=== PATIENT | male | born 1975 | race Caucasian/White ===

== ENCOUNTER 2021-03-31 03:17 | Inpatient (IN) | payer MEDICAID, OTHER ==
[~2021-03-31] VITALS: Ht 167.6 cm; Wt 87.1 kg
[2021-03-31] VITALS (55 sets, daily range): BP systolic 81–123; BP diastolic 39–79
[2021-03-31] MEDS ORDERED: NOREPINEPHRINE 8MG/250ML PMX 250 ML IV ONE (03:30)
[2021-03-31 03:43] LABS: HEMATOCRIT. 45.2 % (42.0-52.0); HEMOGLOBIN. 14.7 g/dL (14.0-18.0); MEAN CORPUSCULAR HEMOGLOBIN 29.2 pg (28.0-32.0); MEAN CORPUSCULAR VOLUME 89.7 fL (80.0-94.0); PLATELET 246 x1000/uL (130-400); RED BLOOD CELL COUNT 5.04 mill/uL (4.7-6.1); RED CELL DISTRIBUTION WIDTH 13.5 % (11.6-14.6)
[2021-03-31 03:45] LABS: CHLORIDE 100 mEq/L (98-107)
[2021-03-31] MEDS ORDERED: MIDAZOLAM HCL 100 MG in DEXT 5% WATER 80 ML IV ONE (03:45)
[2021-03-31] MEDS ORDERED: SODIUM CHLORIDE 0.9% 1,000 ML IV ONE ×2 (03:45)
[2021-03-31 03:50] LABS: INR 1.3; PROTHROMBIN TIME 13.3 sec (9.6-11.0)
[2021-03-31 04:12] LABS: BG BASE EXCESS -10.3 mmol/L (-2.0-2.0); BG CARBOXYHEMOGLOBIN 0.3 % (0.5-1.5); BG DEOXYHEMOGLOBIN 0.5 % (0.0-5.0); BG FRACTION INSPIRED OXYGEN 100; BG HCO3 ACT 15.9 mmol/L (22.0-26.0); BG METHEMOGLOBIN 0.3 % (0.0-1.5); BG OXYGEN SATURATION 99.5 % (92.0-98.5); BG OXYHEMOGLOBIN 98.9 % (94.0-97.0); BG PCO2 36.4 mmHg (35.0-45.0); BG PH 7.258 (7.350-7.450); BG PO2 438.1 mmHg (75.0-100.0); BG SAMPLE SITE RIGHT RADIAL; BG VENT MODE VENT - AC
[2021-03-31 04:33] LABS: CLARITY URINE CLOUDY (CLEAR); COLOR URINE YELLOW (YELLOW); KETONES URINE NEGATIVE (NEGATIVE); LEUKOCYTE ESTERASE URINE NEGATIVE (NEGATIVE); NITRITE URINE NEGATIVE (NEGATIVE); OCCULT BLOOD URINE 1+ (NEGATIVE); PH URINE 5.5 (4.5-8.0); PROTEIN URINE 3+ (NEGATIVE); UROBILINOGEN URINE 0.2 E.U./dL (0.2-1.0)
[2021-03-31 04:46] LABS: METHADONE URINE SCREEN NEGATIVE (NEGATIVE); OPIATES URINE SCREEN NEGATIVE (NEGATIVE)
[2021-03-31 04:47] LABS: *AMPHETAMINES SCREEN URINE NEGATIVE (NEGATIVE); *BARBITURATES SCREEN URINE NEGATIVE (NEGATIVE); *BENZODIAZEPINES SCREEN URINE NEGATIVE (NEGATIVE); *COCAINE SCREEN URINE NEGATIVE (NEGATIVE); CANNABINOID URINE SCREEN NEGATIVE (NEGATIVE); PHENCYCLIDINE URINE SCREEN NEGATIVE (NEGATIVE)
[2021-03-31 06:08] LABS: PLATELET ESTIMATE NORMAL
[2021-03-31] MEDS ORDERED: EPINEPHRINE 0.1MG/ML (1:10,000) 10ML SYR ONE (08:10)
[2021-03-31] MEDS ORDERED: SODIUM BICARBONATE 8.4% 1 MEQ/ML 50ML SYR IV ONE (08:10)
[2021-03-31] MEDS ORDERED: CALCIUM CHLORIDE 1GM/10ML SYR IV ONE (08:10)
[2021-03-31] MEDS ORDERED: AMIODARONE HCL 50MG/ML 3ML VIAL IV ONE (08:10)
[2021-03-31] MEDS ORDERED: DEXTROSE 50% WATER 50ML SYRINGE IV PRN (09:30)
[2021-03-31] MEDS ORDERED: ACETAMINOPHEN 325MG TABLET PO PRN (09:30)
[2021-03-31] MEDS ORDERED: ONDANSETRON HCL 4MG/2ML INJ IV PRN (09:30)
[2021-03-31] MEDS ORDERED: SODIUM BICARBONATE 8.4% 1 MEQ/ML 50ML SYR IV NR (09:45)
[2021-03-31] MEDS ORDERED: LEVETIRACETAM 1,000 MG in SODIUM CHLORIDE 0.9% 100 ML IV NR (09:45)
[2021-03-31] MEDS: SODIUM CHLORIDE 0.45% 1,000 ML IV SCH (09:54)
[2021-03-31] MEDS: MIDAZOLAM HCL 100 MG in DEXT 5% WATER 80 ML IV PRN ×2 (10:14→17:10)
[2021-03-31] MEDS ORDERED: POTASSIUM CHLORIDE INJ 40 MEQ in DEXT 5% WATER 250 ML IV NR (10:30)
[2021-03-31 10:36] LABS: CREATINE KINASE 234 IU/L (39-308)
[2021-03-31] MEDS ORDERED: BLOOD SUGAR DIAGNOSTIC STRIP TEST SCH (11:30)
[2021-03-31] MEDS ORDERED: INSULIN LISPRO 100 UNITS/ML SUBCUT SCH (12:00)
[2021-03-31] MEDS ORDERED: NOREPINEPHRINE 8 MG in DEXT 5% WATER 242 ML IV PRN (12:00)
[2021-03-31] MEDS: PIPERACILLIN/TAZOBACTAM 3.375 G in DEXT 5% WATER 100 ML IV SCH ×3 (12:01→22:04)
[2021-03-31] MEDS: IPRATROPIUM/ALBUTEROL 0.5-3(2.5)MG/3ML NEB HHN SCH ×2 (14:23→20:39)
[2021-03-31] MEDS: LEVETIRACETAM 1000MG PREMIX 100 ML IV SCH (17:01)
[2021-03-31] MEDS ORDERED: THIAMINE HCL 100 MG in SODIUM CHLORIDE 0.9% 49 ML IV NR (18:00)
[2021-03-31] MEDS ORDERED: LEVETIRACETAM 500 MG in SODIUM CHLORIDE 0.9% 100 ML IV SCH (21:00)
[2021-03-31] MEDS ORDERED: LEVETIRACETAM 500MG PREMIX 100 ML IV SCH ×2 (21:00)
[2021-04-01] VITALS (61 sets, daily range): BP systolic 114–153; BP diastolic 71–106
[2021-04-01] MEDS: LEVETIRACETAM 1000MG PREMIX 100 ML IV SCH ×3 (01:08→20:54)
[2021-04-01] MEDS: IPRATROPIUM/ALBUTEROL 0.5-3(2.5)MG/3ML NEB HHN SCH ×3 (01:44→20:25)
[2021-04-01] MEDS: MIDAZOLAM HCL 100 MG in DEXT 5% WATER 80 ML IV PRN (02:30)
[2021-04-01] MEDS: PIPERACILLIN/TAZOBACTAM 3.375 G in DEXT 5% WATER 100 ML IV SCH ×3 (04:42→16:58)
[2021-04-01] MEDS: ACETAMINOPHEN 650MG/20.3ML UDC NG PRN ×2 (04:43→20:56)
[2021-04-01] MEDS: SODIUM CHLORIDE 0.45% 1,000 ML IV SCH ×3 (04:44→18:35)
[2021-04-01 05:47] LABS: BASOPHILS % 0.4 % (0.0-2.0); EOSINOPHILS % 0.1 % (0.0-5.0); HEMATOCRIT. 39.2 % (42.0-52.0); HEMOGLOBIN. 13.2 g/dL (14.0-18.0); LYMPHOCYTES % 17.2 % (20.0-50.0); MEAN CORPUSCULAR HEMOGLOBIN 28.9 pg (28.0-32.0); MEAN CORPUSCULAR VOLUME 85.8 fL (80.0-94.0); MEAN PLATELET VOLUME 8.9 fl (7.4-10.4); MONOCYTES % 11.3 % (2.0-8.0); PLATELET 151 x1000/uL (130-400); RED BLOOD CELL COUNT 4.57 mill/uL (4.7-6.1); RED CELL DISTRIBUTION WIDTH 13.4 % (11.6-14.6)
[2021-04-01 05:49] LABS: CHLORIDE 107 mEq/L (98-107)
[2021-04-01 08:03] LABS: BG CARBOXYHEMOGLOBIN 0.1 % (0.5-1.5); BG DEOXYHEMOGLOBIN 4.9 % (0.0-5.0); BG FRACTION INSPIRED OXYGEN 60; BG HCO3 ACT 25.9 mmol/L (22.0-26.0); BG METHEMOGLOBIN 0.1 % (0.0-1.5); BG OXYGEN SATURATION 95.1 % (92.0-98.5); BG OXYHEMOGLOBIN 94.9 % (94.0-97.0); BG PCO2 46.7 mmHg (35.0-45.0); BG PH 7.362 (7.350-7.450); BG PO2 76.8 mmHg (75.0-100.0); BG SAMPLE SITE RIGHT RADIAL; BG TOTAL HEMOGLOBIN 14.7 g/dL (12.0-18.0); BG TOTAL RESPIRATORY RATE 24 b/min; BG VENT MODE VENT - AC
[2021-04-01] MEDS ORDERED: PANTOPRAZOLE SODIUM 40 MG/VIAL IV SCH (09:00)
[2021-04-01] MEDS: PANTOPRAZOLE SODIUM 40 MG/VIAL IV SCH (16:57)
[2021-04-01] MEDS: SUCRALFATE 1 G/10 ML UDC PO SCH ×2 (16:58→20:56)
[2021-04-01] MEDS ORDERED: FENTANYL CITRATE 2,500 MCG in SODIUM CHLORIDE 0.9% 200 ML IV PRN (18:15)
[2021-04-01] MEDS ORDERED: MIDAZOLAM HCL 100 MG in SODIUM CHLORIDE 0.9% 100 ML IV PRN (18:15)
[2021-04-01] MEDS ORDERED: MIDAZOLAM 100MG/100ML PMX 100 ML IV PRN (18:15)
[2021-04-01] MEDS ORDERED: FENTANYL CITRATE/PF 1,000 MCG in SODIUM CHLORIDE 0.9% 80 ML IV PRN (18:15)
[2021-04-02] VITALS (85 sets, daily range): BP systolic 123–179; BP diastolic 84–119
[2021-04-02] MEDS: PIPERACILLIN/TAZOBACTAM 3.375 G in DEXT 5% WATER 100 ML IV SCH ×5 (00:22→22:25)
[2021-04-02] MEDS: IPRATROPIUM/ALBUTEROL 0.5-3(2.5)MG/3ML NEB HHN SCH ×4 (01:45→20:10)
[2021-04-02] MEDS: SUCRALFATE 1 G/10 ML UDC PO SCH ×4 (04:52→22:15)
[2021-04-02] MEDS: ACETAMINOPHEN 650MG/20.3ML UDC NG PRN ×4 (05:01→23:49)
[2021-04-02 05:58] LABS: CHLORIDE 106 mEq/L (98-107)
[2021-04-02 06:05] LABS: BASOPHILS % 0.2 % (0.0-2.0); EOSINOPHILS % 0.6 % (0.0-5.0); HEMATOCRIT. 37.2 % (42.0-52.0); HEMOGLOBIN. 13.1 g/dL (14.0-18.0); LYMPHOCYTES % 12.6 % (20.0-50.0); MEAN CORPUSCULAR HEMOGLOBIN 29.7 pg (28.0-32.0); MEAN CORPUSCULAR VOLUME 84.7 fL (80.0-94.0); MEAN PLATELET VOLUME 9.2 fl (7.4-10.4); MONOCYTES % 11.4 % (2.0-8.0); NEUTROPHILS % 75.2 % (40.0-76.0); PLATELET 136 x1000/uL (130-400); RED CELL DISTRIBUTION WIDTH 13.5 % (11.6-14.6)
[2021-04-02 06:29] LABS: HEPATITIS B SURFACE ANTIGEN NEGATIVE
[2021-04-02 06:58] LABS: HEPATITIS A AB IGM NEGATIVE (NEGATIVE)
[2021-04-02 08:24] LABS: BG CARBOXYHEMOGLOBIN 0.2 % (0.5-1.5); BG DEOXYHEMOGLOBIN 1.5 % (0.0-5.0); BG FRACTION INSPIRED OXYGEN 55; BG HCO3 ACT 24.3 mmol/L (22.0-26.0); BG METHEMOGLOBIN 0.3 % (0.0-1.5); BG OXYGEN SATURATION 98.5 % (92.0-98.5); BG PCO2 34.5 mmHg (35.0-45.0); BG PH 7.465 (7.350-7.450); BG PO2 125.6 mmHg (75.0-100.0); BG SAMPLE SITE RIGHT RADIAL; BG TOTAL HEMOGLOBIN 13.7 g/dL (12.0-18.0); BG VENT MODE VENT - AC
[2021-04-02] MEDS: LEVETIRACETAM 1000MG PREMIX 100 ML IV SCH ×2 (08:34→20:22)
[2021-04-02] MEDS: PANTOPRAZOLE SODIUM 40 MG/VIAL IV SCH ×2 (08:34→16:26)
[2021-04-02] MEDS: SODIUM CHLORIDE 0.45% 1,000 ML IV SCH (14:26)
[2021-04-02] MEDS: LORAZEPAM 2MG/ML CPJ IV PRN (16:42)
[2021-04-02] MEDS ORDERED: LORAZEPAM 2MG/ML CPJ IV NR (20:30)
[2021-04-02] MEDS: HYDRALAZINE 20MG/ML VIAL IV PRN (22:48)
[2021-04-02] MEDS: CLONIDINE 0.1MG TABLET PO PRN (23:44)
[2021-04-02] MEDS: ENALAPRIL 2.5MG/2ML VIAL 2ML IV PRN (23:52)
[2021-04-03] VITALS (87 sets, daily range): BP systolic 131–184; BP diastolic 83–117
[2021-04-03] MEDS: IPRATROPIUM/ALBUTEROL 0.5-3(2.5)MG/3ML NEB HHN SCH ×3 (01:44→20:24)
[2021-04-03] MEDS: SUCRALFATE 1 G/10 ML UDC PO SCH ×4 (04:08→22:56)
[2021-04-03] MEDS: SODIUM CHLORIDE 0.45% 1,000 ML IV SCH ×2 (04:08→12:59)
[2021-04-03] MEDS: LORAZEPAM 2MG/ML CPJ IV PRN (04:49)
[2021-04-03] MEDS: CLONIDINE 0.1MG TABLET PO PRN ×2 (04:49→17:08)
[2021-04-03] MEDS: PROPOFOL 10MG/ML 100ML 100 ML IV PRN ×5 (05:14→23:09)
[2021-04-03] MEDS: PIPERACILLIN/TAZOBACTAM 3.375 G in DEXT 5% WATER 100 ML IV SCH ×4 (05:15→22:57)
[2021-04-03 05:43] LABS: HEMATOCRIT 43.5 % (42.0-52.0); MEAN CORPUSCULAR HEMOGLOBIN 29.1 pg (28.0-32.0); MEAN CORPUSCULAR VOLUME 84.3 fL (80.0-94.0); PLATELET 146 x1000/uL (130-400); RED BLOOD CELL COUNT 5.16 mill/uL (4.7-6.1); RED CELL DISTRIBUTION WIDTH 13.6 % (11.6-14.6)
[2021-04-03 05:49] LABS: CHLORIDE 103 mEq/L (98-107)
[2021-04-03] MEDS: ACETAMINOPHEN 650MG/20.3ML UDC NG PRN ×2 (06:12→18:19)
[2021-04-03 07:50] LABS: BG DEOXYHEMOGLOBIN 0.8 % (0.0-5.0); BG FRACTION INSPIRED OXYGEN 100; BG HCO3 ACT 20.8 mmol/L (22.0-26.0); BG METHEMOGLOBIN 0.3 % (0.0-1.5); BG OXYGEN SATURATION 99.2 % (92.0-98.5); BG OXYHEMOGLOBIN 98.9 % (94.0-97.0); BG PCO2 27.6 mmHg (35.0-45.0); BG PH 7.495 (7.350-7.450); BG PO2 250.4 mmHg (75.0-100.0); BG SAMPLE SITE RIGHT RADIAL; BG TOTAL HEMOGLOBIN 14.9 g/dL (12.0-18.0); BG TOTAL RESPIRATORY RATE 24 b/min; BG VENT MODE VENT - AC
[2021-04-03] MEDS: LEVETIRACETAM 1000MG PREMIX 100 ML IV SCH ×2 (09:58→21:14)
[2021-04-03] MEDS: PANTOPRAZOLE SODIUM 40 MG/VIAL IV SCH ×2 (09:58→17:08)
[2021-04-03] MEDS: HYDRALAZINE 20MG/ML VIAL IV PRN (12:31)
[2021-04-04] VITALS (99 sets, daily range): BP systolic 124–164; BP diastolic 83–119
[2021-04-04] MEDS: IPRATROPIUM/ALBUTEROL 0.5-3(2.5)MG/3ML NEB HHN SCH ×4 (01:52→21:16)
[2021-04-04] MEDS: SUCRALFATE 1 G/10 ML UDC PO SCH ×4 (03:42→23:37)
[2021-04-04 04:47] LABS: HEMATOCRIT. 40.9 % (42.0-52.0); HEMOGLOBIN. 13.9 g/dL (14.0-18.0); MEAN CORPUSCULAR HEMOGLOBIN 29.2 pg (28.0-32.0); MEAN CORPUSCULAR VOLUME 85.6 fL (80.0-94.0); MEAN PLATELET VOLUME 8.8 fl (7.4-10.4); PLATELET 144 x1000/uL (130-400); RED BLOOD CELL COUNT 4.77 mill/uL (4.7-6.1); RED CELL DISTRIBUTION WIDTH 13.4 % (11.6-14.6)
[2021-04-04] MEDS: PIPERACILLIN/TAZOBACTAM 3.375 G in DEXT 5% WATER 100 ML IV SCH ×4 (04:57→23:37)
[2021-04-04 04:59] LABS: CHLORIDE 102 mEq/L (98-107)
[2021-04-04] MEDS: SODIUM CHLORIDE 0.45% 1,000 ML IV SCH ×2 (05:59→21:46)
[2021-04-04 08:20] LABS: BG BASE EXCESS 0.5 mmol/L (-2.0-2.0); BG CARBOXYHEMOGLOBIN 0.3 % (0.5-1.5); BG DEOXYHEMOGLOBIN 4.2 % (0.0-5.0); BG FRACTION INSPIRED OXYGEN 50; BG HCO3 ACT 22.1 mmol/L (22.0-26.0); BG METHEMOGLOBIN 0.1 % (0.0-1.5); BG OXYGEN SATURATION 95.8 % (92.0-98.5); BG OXYHEMOGLOBIN 95.4 % (94.0-97.0); BG PCO2 27.4 mmHg (35.0-45.0); BG PH 7.524 (7.350-7.450); BG PO2 74.1 mmHg (75.0-100.0); BG SAMPLE SITE RIGHT RADIAL; BG TOTAL HEMOGLOBIN 13.8 g/dL (12.0-18.0); BG VENT MODE VENT - AC
[2021-04-04] MEDS: LEVETIRACETAM 1000MG PREMIX 100 ML IV SCH ×2 (08:49→21:45)
[2021-04-04] MEDS: PANTOPRAZOLE SODIUM 40 MG/VIAL IV SCH ×2 (08:49→16:53)
[2021-04-04] MEDS ORDERED: PROPOFOL 10MG/ML 100ML 100 ML IV PRN (09:00)
[2021-04-04] MEDS: PROPOFOL 10MG/ML 100ML 100 ML IV PRN ×2 (10:06→16:52)
[2021-04-04 10:50] LABS: PLATELET ESTIMATE NORMAL
[2021-04-05] VITALS (102 sets, daily range): BP systolic 107–199; BP diastolic 58–139
[2021-04-05] MEDS: IPRATROPIUM/ALBUTEROL 0.5-3(2.5)MG/3ML NEB HHN SCH ×4 (00:27→20:43)
[2021-04-05] MEDS: ENALAPRIL 2.5MG/2ML VIAL 2ML IV PRN (04:53)
[2021-04-05] MEDS: SUCRALFATE 1 G/10 ML UDC PO SCH ×4 (04:53→23:10)
[2021-04-05 06:03] LABS: HEMATOCRIT. 39.5 % (42.0-52.0); HEMOGLOBIN. 13.8 g/dL (14.0-18.0); MEAN CORPUSCULAR HEMOGLOBIN 29.4 pg (28.0-32.0); MEAN CORPUSCULAR VOLUME 84.5 fL (80.0-94.0); MEAN PLATELET VOLUME 9.1 fl (7.4-10.4); PLATELET 168 x1000/uL (130-400); RED BLOOD CELL COUNT 4.68 mill/uL (4.7-6.1); RED CELL DISTRIBUTION WIDTH 13.3 % (11.6-14.6)
[2021-04-05] MEDS: PIPERACILLIN/TAZOBACTAM 3.375 G in DEXT 5% WATER 100 ML IV SCH ×2 (06:03→09:46)
[2021-04-05 06:06] LABS: CHLORIDE 99 mEq/L (98-107)
[2021-04-05 07:19] LABS: BG CARBOXYHEMOGLOBIN 0.3 % (0.5-1.5); BG DEOXYHEMOGLOBIN 1.7 % (0.0-5.0); BG HCO3 ACT 22.8 mmol/L (22.0-26.0); BG METHEMOGLOBIN 0.1 % (0.0-1.5); BG OXYGEN SATURATION 98.3 % (92.0-98.5); BG OXYHEMOGLOBIN 97.9 % (94.0-97.0); BG PCO2 32.1 mmHg (35.0-45.0); BG SAMPLE SITE RIGHT RADIAL; BG TOTAL HEMOGLOBIN 14.3 g/dL (12.0-18.0); BG VENT MODE VENT - AC
[2021-04-05] MEDS: ACETAMINOPHEN 650MG/20.3ML UDC NG PRN ×2 (08:20→20:26)
[2021-04-05] MEDS: LEVETIRACETAM 500MG/5ML CUP GT SCH ×2 (08:21→22:04)
[2021-04-05] MEDS: PANTOPRAZOLE SODIUM 40 MG/VIAL IV SCH ×2 (08:21→17:44)
[2021-04-05] MEDS: SODIUM CHLORIDE 0.45% 1,000 ML IV SCH (09:46)
[2021-04-05 13:36] LABS: PLATELET ESTIMATE NORMAL
[2021-04-05] MEDS: PROPOFOL 10MG/ML 100ML 100 ML IV PRN ×2 (14:03→20:28)
[2021-04-05] MEDS: HYDRALAZINE 20MG/ML VIAL IV PRN (17:44)
[2021-04-05] MEDS: LORAZEPAM 2MG/ML CPJ IV PRN (18:20)
[2021-04-06] VITALS (97 sets, daily range): BP systolic 97–160; BP diastolic 52–112
[2021-04-06] MEDS: PROPOFOL 10MG/ML 100ML 100 ML IV PRN ×6 (00:21→22:01)
[2021-04-06] MEDS: IPRATROPIUM/ALBUTEROL 0.5-3(2.5)MG/3ML NEB HHN SCH ×4 (01:58→20:22)
[2021-04-06] MEDS: ACETAMINOPHEN 650MG/20.3ML UDC NG PRN (04:28)
[2021-04-06] MEDS: SUCRALFATE 1 G/10 ML UDC PO SCH ×4 (05:11→22:24)
[2021-04-06 06:09] LABS: BASOPHILS % 0.2 % (0.0-2.0); EOSINOPHILS % 0.7 % (0.0-5.0); HEMATOCRIT. 41.3 % (42.0-52.0); HEMOGLOBIN. 14.1 g/dL (14.0-18.0); LYMPHOCYTES % 8.5 % (20.0-50.0); MEAN CORPUSCULAR HEMOGLOBIN 29.3 pg (28.0-32.0); MEAN CORPUSCULAR VOLUME 85.8 fL (80.0-94.0); MEAN PLATELET VOLUME 9.3 fl (7.4-10.4); MONOCYTES % 11.3 % (2.0-8.0); NEUTROPHILS % 79.3 % (40.0-76.0); PLATELET 175 x1000/uL (130-400); RED BLOOD CELL COUNT 4.82 mill/uL (4.7-6.1); RED CELL DISTRIBUTION WIDTH 13.7 % (11.6-14.6)
[2021-04-06 06:16] LABS: CHLORIDE 104 mEq/L (98-107)
[2021-04-06] MEDS: SODIUM CHLORIDE 0.9% 1,000 ML IV SCH (07:01)
[2021-04-06] MEDS: PANTOPRAZOLE SODIUM 40 MG/VIAL IV SCH ×2 (08:21→16:46)
[2021-04-06] MEDS: LEVETIRACETAM 500MG/5ML CUP GT SCH ×2 (09:36→22:24)
[2021-04-06] MEDS: HYDRALAZINE 20MG/ML VIAL IV PRN (10:03)
[2021-04-06] MEDS: LORAZEPAM 2MG/ML CPJ IV PRN (18:20)
[2021-04-07] VITALS (93 sets, daily range): BP systolic 110–168; BP diastolic 52–122
[2021-04-07] MEDS: SODIUM CHLORIDE 0.9% 1,000 ML IV SCH ×3 (00:01→21:40)
[2021-04-07] MEDS: IPRATROPIUM/ALBUTEROL 0.5-3(2.5)MG/3ML NEB HHN SCH ×2 (01:24→08:24)
[2021-04-07] MEDS: PROPOFOL 10MG/ML 100ML 100 ML IV PRN ×5 (02:58→21:47)
[2021-04-07 05:21] LABS: BASOPHILS % 0.7 % (0.0-2.0); EOSINOPHILS % 1.7 % (0.0-5.0); HEMATOCRIT. 37.9 % (42.0-52.0); LYMPHOCYTES % 7.3 % (20.0-50.0); MEAN CORPUSCULAR VOLUME 84.4 fL (80.0-94.0); MEAN PLATELET VOLUME 8.7 fl (7.4-10.4); MONOCYTES % 10.2 % (2.0-8.0); NEUTROPHILS % 80.1 % (40.0-76.0); PLATELET 202 x1000/uL (130-400); RED BLOOD CELL COUNT 4.49 mill/uL (4.7-6.1); RED CELL DISTRIBUTION WIDTH 13.2 % (11.6-14.6)
[2021-04-07 05:52] LABS: CHLORIDE 106 mEq/L (98-107)
[2021-04-07] MEDS: SUCRALFATE 1 G/10 ML UDC PO SCH ×4 (06:34→21:39)
[2021-04-07] MEDS ORDERED: POTASSIUM CHLORIDE 20MEQ TABLET SR PO NR (08:15)
[2021-04-07] MEDS: LEVETIRACETAM 500MG/5ML CUP GT SCH ×2 (08:42→19:59)
[2021-04-07] MEDS: PANTOPRAZOLE SODIUM 40 MG/VIAL IV SCH ×2 (08:43→17:10)
[2021-04-07] MEDS: METOPROLOL TARTRATE 25MG TABLET PO SCH ×2 (08:49→20:00)
[2021-04-07 08:56] LABS: BG BASE EXCESS 1.5 mmol/L (-2.0-2.0); BG CARBOXYHEMOGLOBIN 0.3 % (0.5-1.5); BG DEOXYHEMOGLOBIN 1.5 % (0.0-5.0); BG FRACTION INSPIRED OXYGEN 50; BG HCO3 ACT 25.3 mmol/L (22.0-26.0); BG METHEMOGLOBIN 0.2 % (0.0-1.5); BG OXYGEN SATURATION 98.5 % (92.0-98.5); BG PH 7.452 (7.350-7.450); BG PO2 129.7 mmHg (75.0-100.0); BG SAMPLE SITE LEFT RADIAL; BG TOTAL HEMOGLOBIN 13.6 g/dL (12.0-18.0); BG VENT MODE VENT - AC
[2021-04-07] MEDS: ENALAPRIL 2.5MG/2ML VIAL 2ML IV PRN (12:08)
[2021-04-07] MEDS: CLONIDINE 0.1MG TABLET PO PRN (13:10)
[2021-04-07] MEDS: IPRATROPIUM BROMIDE (0.02%) 0.5MG/2.5ML NEB HHN SCH ×2 (14:34→21:27)
[2021-04-07] MEDS: HYDRALAZINE 20MG/ML VIAL IV PRN (15:00)
[2021-04-08] VITALS (93 sets, daily range): BP systolic 121–203; BP diastolic 69–125
[2021-04-08] MEDS: IPRATROPIUM BROMIDE (0.02%) 0.5MG/2.5ML NEB HHN SCH ×5 (00:14→20:18)
[2021-04-08] MEDS: SUCRALFATE 1 G/10 ML UDC PO SCH ×4 (03:56→23:09)
[2021-04-08] MEDS: PROPOFOL 10MG/ML 100ML 100 ML IV PRN (04:07)
[2021-04-08 05:47] LABS: CHLORIDE 107 mEq/L (98-107)
[2021-04-08 05:50] LABS: BASOPHILS % 0.6 % (0.0-2.0); EOSINOPHILS % 1.7 % (0.0-5.0); HEMOGLOBIN. 12.7 g/dL (14.0-18.0); LYMPHOCYTES % 8.7 % (20.0-50.0); MEAN CORPUSCULAR HEMOGLOBIN 28.6 pg (28.0-32.0); MEAN PLATELET VOLUME 8.9 fl (7.4-10.4); MONOCYTES % 8.6 % (2.0-8.0); NEUTROPHILS % 80.4 % (40.0-76.0); PLATELET 220 x1000/uL (130-400); RED BLOOD CELL COUNT 4.42 mill/uL (4.7-6.1); RED CELL DISTRIBUTION WIDTH 13.6 % (11.6-14.6)
[2021-04-08 07:23] LABS: BG BASE EXCESS 1.1 mmol/L (-2.0-2.0); BG CARBOXYHEMOGLOBIN 0.3 % (0.5-1.5); BG DEOXYHEMOGLOBIN 1.8 % (0.0-5.0); BG HCO3 ACT 24.9 mmol/L (22.0-26.0); BG METHEMOGLOBIN 0.3 % (0.0-1.5); BG OXYGEN SATURATION 98.2 % (92.0-98.5); BG OXYHEMOGLOBIN 97.6 % (94.0-97.0); BG PCO2 37.2 mmHg (35.0-45.0); BG PH 7.444 (7.350-7.450); BG PO2 120.1 mmHg (75.0-100.0); BG SAMPLE SITE RIGHT RADIAL; BG TOTAL HEMOGLOBIN 13.5 g/dL (12.0-18.0); BG VENT MODE VENT - AC
[2021-04-08] MEDS: LEVETIRACETAM 500MG/5ML CUP GT SCH ×2 (08:38→20:09)
[2021-04-08] MEDS: PANTOPRAZOLE SODIUM 40 MG/VIAL IV SCH ×2 (08:38→17:40)
[2021-04-08] MEDS: METOPROLOL TARTRATE 25MG TABLET PO SCH (08:38)
[2021-04-08] MEDS ORDERED: PROPOFOL 10MG/ML 100ML 100 ML IV PRN (09:15)
[2021-04-08] MEDS: SODIUM CHLORIDE 0.9% 1,000 ML IV SCH ×2 (13:02→23:12)
[2021-04-08] MEDS: ENALAPRIL 2.5MG/2ML VIAL 2ML IV PRN ×2 (14:37→20:10)
[2021-04-08] MEDS: MORPHINE SULFATE 2 MG/ML CPJ (NOT FOR IM USE) IV PRN (15:12)
[2021-04-08] MEDS: LORAZEPAM 2MG/ML CPJ IV PRN (15:13)
[2021-04-08] MEDS: CLONIDINE 0.1MG TABLET PO PRN (17:56)
[2021-04-08] MEDS: METOPROLOL TARTRATE 50MG TABLET PO SCH (20:10)
[2021-04-09] VITALS (97 sets, daily range): BP systolic 95–175; BP diastolic 60–126
[2021-04-09] MEDS: IPRATROPIUM BROMIDE (0.02%) 0.5MG/2.5ML NEB HHN SCH ×4 (02:13→20:36)
[2021-04-09] MEDS: ENALAPRIL 2.5MG/2ML VIAL 2ML IV PRN (02:19)
[2021-04-09] MEDS: SUCRALFATE 1 G/10 ML UDC PO SCH ×4 (04:15→22:43)
[2021-04-09 05:27] LABS: BASOPHILS % 0.8 % (0.0-2.0); EOSINOPHILS % 1.3 % (0.0-5.0); HEMATOCRIT. 39.8 % (42.0-52.0); LYMPHOCYTES % 8.7 % (20.0-50.0); MEAN CORPUSCULAR HEMOGLOBIN 27.9 pg (28.0-32.0); MEAN CORPUSCULAR VOLUME 85.2 fL (80.0-94.0); MEAN PLATELET VOLUME 8.8 fl (7.4-10.4); MONOCYTES % 7.9 % (2.0-8.0); NEUTROPHILS % 81.3 % (40.0-76.0); PLATELET 273 x1000/uL (130-400); RED BLOOD CELL COUNT 4.67 mill/uL (4.7-6.1); RED CELL DISTRIBUTION WIDTH 13.4 % (11.6-14.6)
[2021-04-09 05:31] LABS: CHLORIDE 105 mEq/L (98-107)
[2021-04-09] MEDS: METOPROLOL TARTRATE 50MG TABLET PO SCH ×2 (08:01→20:47)
[2021-04-09] MEDS: PANTOPRAZOLE SODIUM 40 MG/VIAL IV SCH ×2 (08:01→16:11)
[2021-04-09] MEDS: LORAZEPAM 2MG/ML CPJ IV PRN ×2 (08:01→14:47)
[2021-04-09] MEDS: ACETAMINOPHEN 650MG/20.3ML UDC NG PRN (08:12)
[2021-04-09 09:14] LABS: BG BASE EXCESS 2.9 mmol/L (-2.0-2.0); BG CARBOXYHEMOGLOBIN 0.3 % (0.5-1.5); BG DEOXYHEMOGLOBIN 1.2 % (0.0-5.0); BG FRACTION INSPIRED OXYGEN 50; BG HCO3 ACT 26.7 mmol/L (22.0-26.0); BG METHEMOGLOBIN 0.3 % (0.0-1.5); BG OXYGEN SATURATION 98.8 % (92.0-98.5); BG OXYHEMOGLOBIN 98.2 % (94.0-97.0); BG PH 7.464 (7.350-7.450); BG SAMPLE SITE RIGHT RADIAL; BG TOTAL HEMOGLOBIN 13.7 g/dL (12.0-18.0); BG VENT MODE VENT - AC
[2021-04-09] MEDS: LEVETIRACETAM 500MG/5ML CUP GT SCH ×2 (10:16→20:46)
[2021-04-09] MEDS: CEFEPIME 1,000 MG in DEXTROSE 5% WATER 50 ML IV SCH ×2 (12:24→20:54)
[2021-04-09] MEDS: MORPHINE SULFATE 2 MG/ML CPJ (NOT FOR IM USE) IV PRN ×2 (12:25→19:01)
[2021-04-09] MEDS: HYDRALAZINE 20MG/ML VIAL IV PRN (16:12)
[2021-04-09] MEDS: CLONIDINE 0.1MG TABLET PO PRN (20:46)
[2021-04-10] VITALS (79 sets, daily range): BP systolic 102–177; BP diastolic 54–118
[2021-04-10] MEDS: IPRATROPIUM BROMIDE (0.02%) 0.5MG/2.5ML NEB HHN SCH ×4 (00:25→20:58)
[2021-04-10] MEDS: SUCRALFATE 1 G/10 ML UDC PO SCH ×4 (04:15→21:46)
[2021-04-10] MEDS: ENALAPRIL 2.5MG/2ML VIAL 2ML IV PRN ×3 (04:45→17:48)
[2021-04-10 05:51] LABS: BASOPHILS % 0.5 % (0.0-2.0); EOSINOPHILS % 1.4 % (0.0-5.0); HEMATOCRIT. 40.1 % (42.0-52.0); HEMOGLOBIN. 13.5 g/dL (14.0-18.0); LYMPHOCYTES % 8.5 % (20.0-50.0); MEAN CORPUSCULAR HEMOGLOBIN 28.8 pg (28.0-32.0); MEAN CORPUSCULAR VOLUME 85.6 fL (80.0-94.0); MEAN PLATELET VOLUME 8.8 fl (7.4-10.4); MONOCYTES % 9.1 % (2.0-8.0); NEUTROPHILS % 80.5 % (40.0-76.0); PLATELET 290 x1000/uL (130-400); RED BLOOD CELL COUNT 4.68 mill/uL (4.7-6.1); RED CELL DISTRIBUTION WIDTH 13.3 % (11.6-14.6)
[2021-04-10 06:04] LABS: CHLORIDE 103 mEq/L (98-107)
[2021-04-10 06:34] LABS: PARTIAL THROMBOPLASTIN TIME 25.9 sec (23.4-31.0); PROTHROMBIN TIME 10.9 sec (9.6-11.0)
[2021-04-10] MEDS: PANTOPRAZOLE SODIUM 40 MG/VIAL IV SCH ×2 (08:32→17:31)
[2021-04-10] MEDS: CEFEPIME 1,000 MG in DEXTROSE 5% WATER 50 ML IV SCH ×2 (08:33→21:47)
[2021-04-10] MEDS: LEVETIRACETAM 500MG/5ML CUP GT SCH ×2 (08:33→20:27)
[2021-04-10] MEDS: METOPROLOL TARTRATE 50MG TABLET PO SCH ×2 (08:33→20:27)
[2021-04-10] MEDS: MORPHINE SULFATE 2 MG/ML CPJ (NOT FOR IM USE) IV PRN (09:29)
[2021-04-10] MEDS ORDERED: HYDROMORPHONE HCL/PF 2MG/ML (OR) ONE (12:40)
[2021-04-10] MEDS ORDERED: VANCOMYCIN 1 G PREMIX 200 ML IV NR (15:00)
[2021-04-10] MEDS: LORAZEPAM 2MG/ML CPJ IV PRN (20:27)
[2021-04-10] MEDS: ACETAMINOPHEN 650MG/20.3ML UDC NG PRN (21:59)
[2021-04-11] VITALS (61 sets, daily range): BP systolic 104–204; BP diastolic 61–139
[2021-04-11] MEDS: MORPHINE SULFATE 2 MG/ML CPJ (NOT FOR IM USE) IV PRN (01:40)
[2021-04-11] MEDS: IPRATROPIUM BROMIDE (0.02%) 0.5MG/2.5ML NEB HHN SCH ×4 (02:00→20:00)
[2021-04-11] MEDS: HYDRALAZINE 20MG/ML VIAL IV PRN ×2 (02:44→10:37)
[2021-04-11] MEDS: LORAZEPAM 2MG/ML CPJ IV PRN ×2 (02:44→17:04)
[2021-04-11 04:36] LABS: BASOPHILS % 0.4 % (0.0-2.0); EOSINOPHILS % 1.4 % (0.0-5.0); HEMATOCRIT. 44.2 % (42.0-52.0); HEMOGLOBIN. 14.7 g/dL (14.0-18.0); LYMPHOCYTES % 9.1 % (20.0-50.0); MEAN CORPUSCULAR HEMOGLOBIN 28.4 pg (28.0-32.0); MEAN CORPUSCULAR VOLUME 85.5 fL (80.0-94.0); MEAN PLATELET VOLUME 8.2 fl (7.4-10.4); MONOCYTES % 10.3 % (2.0-8.0); NEUTROPHILS % 78.8 % (40.0-76.0); PLATELET 328 x1000/uL (130-400); RED BLOOD CELL COUNT 5.17 mill/uL (4.7-6.1); RED CELL DISTRIBUTION WIDTH 12.9 % (11.6-14.6)
[2021-04-11] MEDS: SUCRALFATE 1 G/10 ML UDC PO SCH ×4 (04:40→21:55)
[2021-04-11 04:46] LABS: INR 1.1; PARTIAL THROMBOPLASTIN TIME 25.1 sec (23.4-31.0); PROTHROMBIN TIME 11.5 sec (9.6-11.0)
[2021-04-11 04:47] LABS: CHLORIDE 102 mEq/L (98-107)
[2021-04-11] MEDS ORDERED: VANCOMYCIN 1 G PREMIX 200 ML IV SCH (08:00)
[2021-04-11] MEDS: METOPROLOL TARTRATE 50MG TABLET PO SCH ×2 (08:59→20:52)
[2021-04-11] MEDS: ENALAPRIL 2.5MG/2ML VIAL 2ML IV PRN (08:59)
[2021-04-11] MEDS: CEFEPIME 1,000 MG in DEXTROSE 5% WATER 50 ML IV SCH ×2 (08:59→21:55)
[2021-04-11] MEDS: LEVETIRACETAM 500MG/5ML CUP GT SCH ×2 (08:59→20:51)
[2021-04-11] MEDS: PANTOPRAZOLE SODIUM 40 MG/VIAL IV SCH ×2 (08:59→18:16)
[2021-04-11] MEDS ORDERED: BACTERIOSTATIC SODIUM CHLORIDE 0.9% 30ML VIAL IJ ONE (10:00)
[2021-04-11] MEDS ORDERED: VANCOMYCIN 2,000 MG in DEXT 5% WATER 500 ML IV NR (11:00)
[2021-04-11] MEDS: ACETAMINOPHEN 650MG/20.3ML UDC NG PRN (12:17)
[2021-04-11] MEDS ORDERED: MIDAZOLAM HCL 5 MG/5 ML VIAL ONE (15:30)
[2021-04-11] MEDS ORDERED: FENTANYL CITRATE/PF 50MCG/ML 2ML VIAL ONE (15:30)
[2021-04-11] MEDS ORDERED: MIDAZOLAM HCL 5 MG/5 ML VIAL IV PRN (16:05)
[2021-04-11] MEDS: METOCLOPRAMIDE HCL 10MG/2ML VIAL IV SCH ×2 (18:16→23:28)
[2021-04-11] MEDS: VANCOMYCIN 1 G PREMIX 200 ML IV SCH (20:30)
[2021-04-12] VITALS (13 sets, daily range): BP systolic 93–136; BP diastolic 57–99
[2021-04-12] MEDS: IPRATROPIUM BROMIDE (0.02%) 0.5MG/2.5ML NEB HHN SCH ×4 (03:21→21:17)
[2021-04-12] MEDS: METOCLOPRAMIDE HCL 10MG/2ML VIAL IV SCH ×4 (05:12→23:21)
[2021-04-12] MEDS: VANCOMYCIN 1 G PREMIX 200 ML IV SCH ×3 (05:12→20:29)
[2021-04-12] MEDS: SUCRALFATE 1 G/10 ML UDC PO SCH ×4 (05:12→22:06)
[2021-04-12 05:35] LABS: HEMATOCRIT. 39.5 % (42.0-52.0); HEMOGLOBIN. 13.9 g/dL (14.0-18.0); MEAN CORPUSCULAR HEMOGLOBIN 29.6 pg (28.0-32.0); MEAN PLATELET VOLUME 8.7 fl (7.4-10.4); PLATELET 324 x1000/uL (130-400); RED BLOOD CELL COUNT 4.69 mill/uL (4.7-6.1); RED CELL DISTRIBUTION WIDTH 13.2 % (11.6-14.6)
[2021-04-12 05:53] LABS: CHLORIDE 102 mEq/L (98-107)
[2021-04-12] MEDS: LEVETIRACETAM 500MG/5ML CUP GT SCH ×2 (09:47→22:06)
[2021-04-12] MEDS: CEFEPIME 1,000 MG in DEXTROSE 5% WATER 50 ML IV SCH ×2 (09:47→22:05)
[2021-04-12] MEDS: PANTOPRAZOLE SODIUM 40 MG/VIAL IV SCH ×2 (09:48→16:37)
[2021-04-12] MEDS: METOPROLOL TARTRATE 50MG TABLET PO SCH ×2 (09:48→22:06)
[2021-04-12 11:57] LABS: PLATELET ESTIMATE NORMAL
[2021-04-12] MEDS: ACETAMINOPHEN 650MG/20.3ML UDC NG PRN ×2 (16:37→23:20)
[2021-04-13] VITALS (12 sets, daily range): BP systolic 116–148; BP diastolic 45–101
[2021-04-13] MEDS: IPRATROPIUM BROMIDE (0.02%) 0.5MG/2.5ML NEB HHN SCH ×4 (01:06→14:18)
[2021-04-13] MEDS: VANCOMYCIN 1 G PREMIX 200 ML IV SCH ×3 (03:56→20:52)
[2021-04-13] MEDS: SUCRALFATE 1 G/10 ML UDC PO SCH ×4 (03:56→22:39)
[2021-04-13] MEDS: METOCLOPRAMIDE HCL 10MG/2ML VIAL IV SCH ×2 (05:23→11:21)
[2021-04-13 06:40] LABS: BASOPHILS % 0.7 % (0.0-2.0); EOSINOPHILS % 2.6 % (0.0-5.0); HEMATOCRIT. 40.1 % (42.0-52.0); HEMOGLOBIN. 13.7 g/dL (14.0-18.0); LYMPHOCYTES % 10.7 % (20.0-50.0); MEAN CORPUSCULAR HEMOGLOBIN 28.8 pg (28.0-32.0); MEAN CORPUSCULAR VOLUME 84.3 fL (80.0-94.0); MONOCYTES % 10.7 % (2.0-8.0); NEUTROPHILS % 75.3 % (40.0-76.0); RED BLOOD CELL COUNT 4.76 mill/uL (4.7-6.1); RED CELL DISTRIBUTION WIDTH 13.3 % (11.6-14.6)
[2021-04-13 06:57] LABS: CHLORIDE 100 mEq/L (98-107)
[2021-04-13] MEDS: CEFEPIME 1,000 MG in DEXTROSE 5% WATER 50 ML IV SCH ×2 (09:39→20:52)
[2021-04-13] MEDS: LEVETIRACETAM 500MG/5ML CUP GT SCH ×2 (09:39→20:52)
[2021-04-13] MEDS: PANTOPRAZOLE SODIUM 40 MG/VIAL IV SCH ×2 (09:39→16:10)
[2021-04-13] MEDS: METOPROLOL TARTRATE 50MG TABLET PO SCH ×2 (09:40→20:53)
[2021-04-13 11:13] LABS: PLATELET 315 x1000/uL (130-400)
[2021-04-13] MEDS ORDERED: POTASSIUM CHLORIDE 20MEQ TABLET SR PO SCH (12:30)
[2021-04-14] VITALS (9 sets, daily range): BP systolic 114–141; BP diastolic 76–101
[2021-04-14] MEDS: IPRATROPIUM BROMIDE (0.02%) 0.5MG/2.5ML NEB HHN SCH ×5 (00:17→20:20)
[2021-04-14] MEDS: VANCOMYCIN 1 G PREMIX 200 ML IV SCH ×3 (03:46→20:05)
[2021-04-14] MEDS: SUCRALFATE 1 G/10 ML UDC PO SCH ×4 (03:46→20:02)
[2021-04-14 06:25] LABS: BASOPHILS % 0.4 % (0.0-2.0); EOSINOPHILS % 2.3 % (0.0-5.0); HEMATOCRIT. 42.7 % (42.0-52.0); HEMOGLOBIN. 14.5 g/dL (14.0-18.0); LYMPHOCYTES % 11.1 % (20.0-50.0); MEAN CORPUSCULAR VOLUME 85.2 fL (80.0-94.0); MEAN PLATELET VOLUME 9.1 fl (7.4-10.4); MONOCYTES % 11.3 % (2.0-8.0); NEUTROPHILS % 74.9 % (40.0-76.0); PLATELET 329 x1000/uL (130-400); RED BLOOD CELL COUNT 5.01 mill/uL (4.7-6.1); RED CELL DISTRIBUTION WIDTH 13.3 % (11.6-14.6)
[2021-04-14 06:55] LABS: CHLORIDE 103 mEq/L (98-107)
[2021-04-14] MEDS ORDERED: LORAZEPAM 2MG/ML CPJ IV PRN (08:45)
[2021-04-14] MEDS: METOPROLOL TARTRATE 50MG TABLET PO SCH (09:07)
[2021-04-14] MEDS: CEFEPIME 1,000 MG in DEXTROSE 5% WATER 50 ML IV SCH ×2 (09:07→20:02)
[2021-04-14] MEDS: PANTOPRAZOLE SODIUM 40 MG/VIAL IV SCH ×2 (09:07→17:08)
[2021-04-14] MEDS: LEVETIRACETAM 500MG/5ML CUP GT SCH ×2 (09:07→20:02)
[2021-04-14] MEDS: METOPROLOL TARTRATE 50MG TABLET GT SCH (20:05)
[2021-04-15] VITALS (11 sets, daily range): BP systolic 114–140; BP diastolic 81–104
[2021-04-15] MEDS: IPRATROPIUM BROMIDE (0.02%) 0.5MG/2.5ML NEB HHN SCH ×4 (02:19→20:33)
[2021-04-15] MEDS: SUCRALFATE 1 G/10 ML UDC PO SCH ×4 (03:55→21:58)
[2021-04-15] MEDS: VANCOMYCIN 1 G PREMIX 200 ML IV SCH (05:47)
[2021-04-15 06:24] LABS: CHLORIDE 103 mEq/L (98-107)
[2021-04-15 06:31] LABS: VANCOMYCIN TROUGH 7.8 ug/mL (5.0-10.0)
[2021-04-15] MEDS: METOPROLOL TARTRATE 50MG TABLET GT SCH ×2 (09:05→20:00)
[2021-04-15] MEDS: LEVETIRACETAM 500MG/5ML CUP GT SCH ×2 (09:05→20:00)
[2021-04-15] MEDS: PANTOPRAZOLE SODIUM 40 MG/VIAL IV SCH ×2 (09:05→16:55)
[2021-04-15] MEDS: VANCOMYCIN 1500MG in DEXTROSE 5% WATER 250ML IV SCH ×2 (13:40→19:22)
[2021-04-16] VITALS (11 sets, daily range): BP systolic 106–138; BP diastolic 68–96
[2021-04-16] MEDS: VANCOMYCIN 1500MG in DEXTROSE 5% WATER 250ML IV SCH ×3 (01:10→19:15)
[2021-04-16] MEDS: SUCRALFATE 1 G/10 ML UDC PO SCH ×4 (03:15→21:28)
[2021-04-16] MEDS: IPRATROPIUM BROMIDE (0.02%) 0.5MG/2.5ML NEB HHN SCH ×3 (07:40→21:08)
[2021-04-16] MEDS: METOPROLOL TARTRATE 50MG TABLET GT SCH ×2 (09:08→21:28)
[2021-04-16] MEDS: PANTOPRAZOLE SODIUM 40 MG/VIAL IV SCH ×2 (09:08→17:16)
[2021-04-16] MEDS: LEVETIRACETAM 500MG/5ML CUP GT SCH ×2 (09:08→21:28)
[2021-04-16 09:47] LABS: BG BASE EXCESS 3.2 mmol/L (-2.0-2.0); BG CARBOXYHEMOGLOBIN 0.1 % (0.5-1.5); BG DEOXYHEMOGLOBIN 2.1 % (0.0-5.0); BG FRACTION INSPIRED OXYGEN 40; BG HCO3 ACT 26.5 mmol/L (22.0-26.0); BG OXYGEN SATURATION 97.9 % (92.0-98.5); BG OXYHEMOGLOBIN 97.8 % (94.0-97.0); BG PCO2 36.4 mmHg (35.0-45.0); BG PO2 98.6 mmHg (75.0-100.0); BG SAMPLE SITE RIGHT RADIAL; BG TOTAL HEMOGLOBIN 14.1 g/dL (12.0-18.0); BG VENT MODE VENT - SIMV
[2021-04-16 10:35] LABS: CHLORIDE 103 mEq/L (98-107)
[2021-04-17] VITALS (12 sets, daily range): BP systolic 116–133; BP diastolic 67–95
[2021-04-17] MEDS: IPRATROPIUM BROMIDE (0.02%) 0.5MG/2.5ML NEB HHN SCH ×4 (00:58→20:38)
[2021-04-17] MEDS: SUCRALFATE 1 G/10 ML UDC PO SCH ×4 (04:38→22:15)
[2021-04-17 06:10] LABS: BASOPHILS % 0.7 % (0.0-2.0); EOSINOPHILS % 1.9 % (0.0-5.0); HEMATOCRIT. 41.7 % (42.0-52.0); HEMOGLOBIN. 14.4 g/dL (14.0-18.0); LYMPHOCYTES % 9.9 % (20.0-50.0); MEAN CORPUSCULAR HEMOGLOBIN 29.1 pg (28.0-32.0); MEAN CORPUSCULAR VOLUME 84.1 fL (80.0-94.0); MEAN PLATELET VOLUME 9.1 fl (7.4-10.4); MONOCYTES % 8.2 % (2.0-8.0); NEUTROPHILS % 79.3 % (40.0-76.0); PLATELET 301 x1000/uL (130-400); RED BLOOD CELL COUNT 4.96 mill/uL (4.7-6.1); RED CELL DISTRIBUTION WIDTH 12.9 % (11.6-14.6)
[2021-04-17 06:14] LABS: CHLORIDE 104 mEq/L (98-107)
[2021-04-17] MEDS: LEVETIRACETAM 500MG/5ML CUP GT SCH ×2 (09:55→21:56)
[2021-04-17] MEDS: PANTOPRAZOLE SODIUM 40 MG/VIAL IV SCH ×2 (09:56→16:00)
[2021-04-17] MEDS: METOPROLOL TARTRATE 50MG TABLET GT SCH ×2 (09:56→21:56)
[2021-04-18] VITALS (12 sets, daily range): BP systolic 101–136; BP diastolic 65–101
[2021-04-18] MEDS: IPRATROPIUM BROMIDE (0.02%) 0.5MG/2.5ML NEB HHN SCH ×4 (02:15→20:03)
[2021-04-18] MEDS: SUCRALFATE 1 G/10 ML UDC PO SCH ×4 (04:15→22:14)
[2021-04-18] MEDS: ACETAMINOPHEN 650MG/20.3ML UDC NG PRN (06:35)
[2021-04-18] MEDS: PANTOPRAZOLE SODIUM 40 MG/VIAL IV SCH ×2 (09:22→16:25)
[2021-04-18] MEDS: LEVETIRACETAM 500MG/5ML CUP GT SCH ×2 (09:22→22:13)
[2021-04-18] MEDS: METOPROLOL TARTRATE 50MG TABLET GT SCH ×2 (09:22→22:14)
[2021-04-19] VITALS (14 sets, daily range): BP systolic 102–140; BP diastolic 73–95
[2021-04-19] MEDS: IPRATROPIUM BROMIDE (0.02%) 0.5MG/2.5ML NEB HHN SCH ×4 (00:06→20:11)
[2021-04-19] MEDS: SUCRALFATE 1 G/10 ML UDC PO SCH ×4 (05:49→22:03)
[2021-04-19] MEDS: LEVETIRACETAM 500MG/5ML CUP GT SCH ×2 (08:53→22:04)
[2021-04-19] MEDS: PANTOPRAZOLE SODIUM 40 MG/VIAL IV SCH ×2 (08:53→17:29)
[2021-04-19] MEDS: METOPROLOL TARTRATE 50MG TABLET GT SCH ×2 (08:55→22:05)
[2021-04-20] VITALS (14 sets, daily range): BP systolic 106–139; BP diastolic 75–95
[2021-04-20] MEDS: IPRATROPIUM BROMIDE (0.02%) 0.5MG/2.5ML NEB HHN SCH ×5 (01:39→20:19)
[2021-04-20] MEDS: SUCRALFATE 1 G/10 ML UDC PO SCH ×4 (04:16→22:32)
[2021-04-20 07:26] LABS: BG BASE EXCESS 1.5 mmol/L (-2.0-2.0); BG CARBOXYHEMOGLOBIN 0.2 % (0.5-1.5); BG DEOXYHEMOGLOBIN 4.1 % (0.0-5.0); BG HCO3 ACT 25.4 mmol/L (22.0-26.0); BG METHEMOGLOBIN 0.2 % (0.0-1.5); BG OXYGEN SATURATION 95.9 % (92.0-98.5); BG OXYHEMOGLOBIN 95.5 % (94.0-97.0); BG PCO2 37.9 mmHg (35.0-45.0); BG PH 7.444 (7.350-7.450); BG PO2 80.2 mmHg (75.0-100.0); BG SAMPLE SITE RIGHT RADIAL; BG TOTAL HEMOGLOBIN 14.9 g/dL (12.0-18.0); BG VENT MODE VENT - SIMV
[2021-04-20] MEDS: LEVETIRACETAM 500MG/5ML CUP GT SCH ×2 (08:36→22:33)
[2021-04-20] MEDS: PANTOPRAZOLE SODIUM 40 MG/VIAL IV SCH ×2 (08:36→16:14)
[2021-04-20] MEDS: METOPROLOL TARTRATE 50MG TABLET GT SCH ×2 (08:36→22:00)
[2021-04-20] MEDS: ACETAMINOPHEN 650MG/20.3ML UDC NG PRN ×2 (12:46→22:32)
[2021-04-20] MEDS: MORPHINE SULFATE 2 MG/ML CPJ (NOT FOR IM USE) IV PRN ×2 (13:38→22:33)
[2021-04-20] MEDS: HYDRALAZINE 20MG/ML VIAL IV PRN (13:58)
[2021-04-21] VITALS (14 sets, daily range): BP systolic 105–124; BP diastolic 60–97
[2021-04-21] MEDS: IPRATROPIUM BROMIDE (0.02%) 0.5MG/2.5ML NEB HHN SCH ×4 (01:51→20:07)
[2021-04-21] MEDS: SUCRALFATE 1 G/10 ML UDC PO SCH ×2 (04:35→09:49)
[2021-04-21] MEDS: ACETAMINOPHEN 650MG/20.3ML UDC NG PRN (04:35)
[2021-04-21] MEDS: MORPHINE SULFATE 2 MG/ML CPJ (NOT FOR IM USE) IV PRN ×3 (04:37→18:33)
[2021-04-21] MEDS: LEVETIRACETAM 500MG/5ML CUP GT SCH ×2 (08:22→21:09)
[2021-04-21] MEDS: PANTOPRAZOLE SODIUM 40 MG/VIAL IV SCH (08:22)
[2021-04-21] MEDS: METOPROLOL TARTRATE 50MG TABLET GT SCH ×2 (08:23→21:09)
[2021-04-21] MEDS ORDERED: DOCUSATE SODIUM SUGAR FREE 100MG/10ML UDC NG NR (12:00)
[2021-04-21 13:06] LABS: BASOPHILS % 1.4 % (0.0-2.0); EOSINOPHILS % 3.2 % (0.0-5.0); HEMATOCRIT. 41.7 % (42.0-52.0); HEMOGLOBIN. 14.4 g/dL (14.0-18.0); LYMPHOCYTES % 13.3 % (20.0-50.0); MEAN CORPUSCULAR HEMOGLOBIN 29.4 pg (28.0-32.0); MEAN PLATELET VOLUME 9.5 fl (7.4-10.4); MONOCYTES % 8.3 % (2.0-8.0); NEUTROPHILS % 73.8 % (40.0-76.0); PLATELET 265 x1000/uL (130-400); RED CELL DISTRIBUTION WIDTH 13.2 % (11.6-14.6)
[2021-04-21 13:43] LABS: CHLORIDE 107 mEq/L (98-107)
[2021-04-21] MEDS: OMEPRAZOLE 20MG CAPSULE EXTENDED RELEASE PO SCH (21:08)
[2021-04-22] VITALS (13 sets, daily range): BP systolic 102–136; BP diastolic 63–98
[2021-04-22] MEDS: IPRATROPIUM BROMIDE (0.02%) 0.5MG/2.5ML NEB HHN SCH ×4 (02:08→20:06)
[2021-04-22] MEDS: OMEPRAZOLE 20MG CAPSULE EXTENDED RELEASE PO SCH ×2 (09:10→20:21)
[2021-04-22] MEDS: LEVETIRACETAM 500MG/5ML CUP GT SCH ×2 (09:10→20:21)
[2021-04-22] MEDS: METOPROLOL TARTRATE 50MG TABLET GT SCH ×2 (09:10→20:23)
[2021-04-22] MEDS: DOCUSATE SODIUM SUGAR FREE 100MG/10ML UDC NG SCH (09:11)
[2021-04-22] MEDS ORDERED: METOPROLOL TARTRATE 5MG/5ML VIAL IV SCH (12:00)
[2021-04-22] MEDS: ACETAMINOPHEN 650MG/20.3ML UDC NG PRN (12:20)
[2021-04-22 19:27] LABS: BASOPHILS % 0.6 % (0.0-2.0); HEMATOCRIT. 42.7 % (42.0-52.0); HEMOGLOBIN. 14.6 g/dL (14.0-18.0); LYMPHOCYTES % 14.3 % (20.0-50.0); MEAN CORPUSCULAR HEMOGLOBIN 28.9 pg (28.0-32.0); MEAN CORPUSCULAR VOLUME 84.2 fL (80.0-94.0); MEAN PLATELET VOLUME 9.3 fl (7.4-10.4); NEUTROPHILS % 73.1 % (40.0-76.0); PLATELET 268 x1000/uL (130-400); RED BLOOD CELL COUNT 5.07 mill/uL (4.7-6.1); RED CELL DISTRIBUTION WIDTH 13.2 % (11.6-14.6)
[2021-04-22 19:32] LABS: CHLORIDE 109 mEq/L (98-107)
[2021-04-23] VITALS (14 sets, daily range): BP systolic 106–162; BP diastolic 73–103
[2021-04-23] MEDS: IPRATROPIUM BROMIDE (0.02%) 0.5MG/2.5ML NEB HHN SCH ×4 (01:56→19:48)
[2021-04-23] MEDS: ACETAMINOPHEN 650MG/20.3ML UDC NG PRN ×3 (06:23→21:27)
[2021-04-23] MEDS: DOCUSATE SODIUM SUGAR FREE 100MG/10ML UDC NG SCH (09:00)
[2021-04-23] MEDS: OMEPRAZOLE 20MG CAPSULE EXTENDED RELEASE PO SCH ×2 (09:42→21:27)
[2021-04-23] MEDS: LEVETIRACETAM 500MG/5ML CUP GT SCH ×2 (09:42→21:26)
[2021-04-23] MEDS: METOPROLOL TARTRATE 50MG TABLET GT SCH ×2 (09:43→21:28)
[2021-04-23] MEDS: CEFEPIME 1,000 MG in DEXTROSE 5% WATER 50 ML IV SCH (12:18)
[2021-04-23 16:41] LABS: CLARITY URINE CLOUDY (CLEAR); COLOR URINE DARK YELLOW (YELLOW); KETONES URINE NEGATIVE (NEGATIVE); LEUKOCYTE ESTERASE URINE TRACE (NEGATIVE); NITRITE URINE NEGATIVE (NEGATIVE); OCCULT BLOOD URINE 2+ (NEGATIVE); PROTEIN URINE 1+ (NEGATIVE); SPECIFIC GRAVITY URINE 1.039 (1.005-1.030)
[2021-04-23 16:55] LABS: BASOPHILS % 0.8 % (0.0-2.0); EOSINOPHILS % 2.2 % (0.0-5.0); HEMATOCRIT. 42.1 % (42.0-52.0); HEMOGLOBIN. 14.7 g/dL (14.0-18.0); LYMPHOCYTES % 13.9 % (20.0-50.0); MEAN CORPUSCULAR HEMOGLOBIN 29.4 pg (28.0-32.0); MEAN CORPUSCULAR VOLUME 84.2 fL (80.0-94.0); MONOCYTES % 8.7 % (2.0-8.0); NEUTROPHILS % 74.4 % (40.0-76.0); PLATELET 257 x1000/uL (130-400); RED CELL DISTRIBUTION WIDTH 13.3 % (11.6-14.6)
[2021-04-23 17:14] LABS: CHLORIDE 110 mEq/L (98-107)
[2021-04-24] VITALS (12 sets, daily range): BP systolic 107–158; BP diastolic 77–101
[2021-04-24] MEDS: CEFEPIME 1,000 MG in DEXTROSE 5% WATER 50 ML IV SCH ×2 (00:26→12:09)
[2021-04-24] MEDS: IPRATROPIUM BROMIDE (0.02%) 0.5MG/2.5ML NEB HHN SCH ×3 (01:15→14:14)
[2021-04-24] MEDS: LEVETIRACETAM 500MG/5ML CUP GT SCH (08:36)
[2021-04-24] MEDS: DOCUSATE SODIUM SUGAR FREE 100MG/10ML UDC NG SCH (08:36)
[2021-04-24] MEDS: ACETAMINOPHEN 650MG/20.3ML UDC NG PRN (08:36)
[2021-04-24] MEDS: OMEPRAZOLE 20MG CAPSULE EXTENDED RELEASE PO SCH (08:37)
[2021-04-24] MEDS: METOPROLOL TARTRATE 50MG TABLET GT SCH (08:38)
== END 2021-04-24 18:21 | DRG 4 ==
LOC: ER 03:17 → MICUSO 04:02 → EDBD 04:02 → EDBEDREQTM 04:20 → EDBEDREQ 04:20 → ENRESERV 08:10 → MICUSO 04-01 16:24 → 5EST 04-12 03:38
PROVIDERS: ADMIT Internal Medicine; ATTEND Internal Medicine
PROC: 5A1955Z Respiratory Ventilation, Greater than 96 Consecutive Hours (ICD-10-PCS; 2021-03-31)
PROC: 5A12012 Performance of Cardiac Output, Single, Manual (ICD-10-PCS; 2021-03-31)
PROC: 0BH17EZ Insertion of Endotracheal Airway into Trachea, Via Natural or Artificial Opening (ICD-10-PCS; 2021-03-31)
PROC: 06HY33Z Insertion of Infusion Device into Lower Vein, Percutaneous Approach (ICD-10-PCS; 2021-03-31)
PROC: 4A10X4Z Monitoring of Central Nervous Electrical Activity, External Approach (ICD-10-PCS; 2021-04-01)
PROC: 02HV33Z Insertion of Infusion Device into Superior Vena Cava, Percutaneous Approach (ICD-10-PCS; 2021-04-04)
PROC: B548ZZA Ultrasonography of Superior Vena Cava, Guidance (ICD-10-PCS; 2021-04-04)
PROC: 0B110F4 Bypass Trachea to Cutaneous with Tracheostomy Device, Open Approach (ICD-10-PCS; principal; 2021-04-10)
PROC: 0GTJ0ZZ Resection of Thyroid Gland Isthmus, Open Approach (ICD-10-PCS; 2021-04-10)
PROC: 0DH63UZ Insertion of Feeding Device into Stomach, Percutaneous Approach (ICD-10-PCS; 2021-04-11)
PROC: 0DB78ZX Excision of Stomach, Pylorus, Via Natural or Artificial Opening Endoscopic, Diagnostic (ICD-10-PCS; 2021-04-11)
PROC: 4A10X4Z Monitoring of Central Nervous Electrical Activity, External Approach (ICD-10-PCS; 2021-04-21)
DX: A41.9 Sepsis, unspecified organism (principal); I46.9 Cardiac arrest, cause unspecified; G93.6 Cerebral edema; R65.21 Severe sepsis with septic shock; J69.0 Pneumonitis due to inhalation of food and vomit; G93.1 Anoxic brain damage, not elsewhere classified; K29.71 Gastritis, unspecified, with bleeding; R13.12 Dysphagia, oropharyngeal phase; J96.00 Acute respiratory failure, unspecified whether with hypoxia or hypercapnia; E87.2 Acidosis; E44.1 Mild protein-calorie malnutrition; D64.9 Anemia, unspecified; E66.9 Obesity, unspecified; E87.6 Hypokalemia; Z20.822 Contact with and (suspected) exposure to COVID-19; I51.7 Cardiomegaly; K76.0 Fatty (change of) liver, not elsewhere classified; R56.9 Unspecified convulsions; Z82.49 Family history of ischemic heart disease and other diseases of the circulatory system; Z68.31 Body mass index [BMI] 31.0-31.9, adult
CPT/HCPCS: 36415; 36600; 71045; 71250; 76700; 76937; 80048; 80053; 80076; 80202; 80305; 81003; 82375; 82550; 82805; 82962; 83036; 83605; 83735; 84145; 84478; 84484; 85025; 85027; 86705; 86709; 86803; 86850; 86900; 87070; 87340; 87426; 88305; 88312; 88313; 93005; 93306; 94003; 94640; 95816; 99291; A6261; C1725; C9113; J0282; J0360; J0692; J1170; J1953; J2060; J2250; J2270; J2543; J2704; J2765; J3010; J3370; J3411; J3480; J3490; J7030; J7040; J7050; J7060; A4315

== ENCOUNTER 2021-05-27 14:21 | Inpatient (IN) | payer MEDICAID, OTHER ==
[~2021-05-27] VITALS: Ht 167.6 cm; Wt 81.7 kg
[2021-05-27] MEDS ORDERED: IBUPROFEN 600MG TABLET PO ONE (15:00)
[2021-05-27 15:27] LABS: BASOPHILS % 0.5 % (0.0-2.0); EOSINOPHILS % 1.1 % (0.0-5.0); HEMATOCRIT. 38.7 % (42.0-52.0); HEMOGLOBIN. 12.9 g/dL (14.0-18.0); LYMPHOCYTES % 11.5 % (20.0-50.0); MEAN CORPUSCULAR HEMOGLOBIN 28.5 pg (28.0-32.0); MEAN CORPUSCULAR VOLUME 85.6 fL (80.0-94.0); MEAN PLATELET VOLUME 8.9 fl (7.4-10.4); NEUTROPHILS % 78.9 % (40.0-76.0); PLATELET 310 x1000/uL (130-400); RED BLOOD CELL COUNT 4.52 mill/uL (4.7-6.1); RED CELL DISTRIBUTION WIDTH 13.9 % (11.6-14.6)
[2021-05-27 15:34] LABS: CHLORIDE 100 mEq/L (98-107)
[2021-05-27] MEDS ORDERED: VANCOMYCIN 1 G PREMIX 200 ML IV SCH (16:30)
[2021-05-27] MEDS ORDERED: SODIUM CHLORIDE 0.9% 1000ML BAG (SEPSIS BOLUS) IV ONE (16:30)
[2021-05-27] MEDS ORDERED: CLINDAMYCIN 600 MG in DEXTROSE 5% WATER 50 ML IV ONE (16:30)
[2021-05-27] MEDS ORDERED: PIPERACILLIN/TAZOBACTAM 3.375GM/50ML PREMIX IV ONE (16:30)
[2021-05-27] MEDS ORDERED: PIPERACILLIN/TAZ 3.375G PREMIX 50 ML IV NR (16:36)
[2021-05-27] MEDS ORDERED: CLINDAMYCIN 600MG PREMIX 50 ML IV NR (16:45)
[2021-05-27 17:33] LABS: PROTHROMBIN TIME 11.1 sec (9.6-11.0)
[2021-05-27 17:38] LABS: CLARITY URINE TURBID (CLEAR); COLOR URINE YELLOW (YELLOW); KETONES URINE NEGATIVE (NEGATIVE); LEUKOCYTE ESTERASE URINE NEGATIVE (NEGATIVE); NITRITE URINE NEGATIVE (NEGATIVE); OCCULT BLOOD URINE NEGATIVE (NEGATIVE); PH URINE 8.5 (4.5-8.0); PROTEIN URINE NEGATIVE (NEGATIVE); SPECIFIC GRAVITY URINE 1.016 (1.005-1.030)
[2021-05-27 20:46] LABS: BG BASE EXCESS 1.6 mmol/L (-2.0-2.0); BG CARBOXYHEMOGLOBIN 0.1 % (0.5-1.5); BG DEOXYHEMOGLOBIN 2.7 % (0.0-5.0); BG FRACTION INSPIRED OXYGEN 36; BG HCO3 ACT 25.9 mmol/L (22.0-26.0); BG METHEMOGLOBIN 0.5 % (0.0-1.5); BG OXYGEN SATURATION 97.3 % (92.0-98.5); BG OXYHEMOGLOBIN 96.7 % (94.0-97.0); BG PCO2 39.4 mmHg (35.0-45.0); BG PH 7.435 (7.350-7.450); BG PO2 96.6 mmHg (75.0-100.0); BG SAMPLE SITE RIGHT RADIAL; BG TOTAL HEMOGLOBIN 11.6 g/dL (12.0-18.0); BG VENT MODE VENT - SIMV
[2021-05-27] MEDS ORDERED: CEFEPIME 2,000 MG in DEXT 5% WATER 100 ML IV SCH (22:30)
[2021-05-28] VITALS (10 sets, daily range): BP systolic 114–141; BP diastolic 80–107
[2021-05-28] MEDS ORDERED: ACETAMINOPHEN 650MG/20.3ML UDC GT PRN (01:30)
[2021-05-28] MEDS ORDERED: ONDANSETRON HCL 4MG/2ML INJ IV PRN (01:45)
[2021-05-28] MEDS: CLINDAMYCIN 900 MG in DEXTROSE 5% WATER 50 ML IV SCH ×3 (04:06→17:09)
[2021-05-28] MEDS ORDERED: MOM MT (05:25)
[2021-05-28] MEDS ORDERED: KEPP500 MT (05:25)
[2021-05-28] MEDS ORDERED: METO-539 MT (05:31)
[2021-05-28] MEDS ORDERED: MULT-230 MT (05:31)
[2021-05-28] MEDS ORDERED: OMEP20TA15 PO (05:31)
[2021-05-28] MEDS ORDERED: ZINC220C6 (05:31)
[2021-05-28] MEDS ORDERED: ASCO500C15 PO (05:31)
[2021-05-28] MEDS: OMEPRAZOLE 20MG CAPSULE EXTENDED RELEASE PO SCH (05:57)
[2021-05-28] MEDS ORDERED: MAGNESIUM/ALUMINUM HYDROXIDE/SIMETHICONE 30ML UDC PO PRN (08:15)
[2021-05-28] MEDS ORDERED: HYDROCODONE/ACETAMINOPHEN 5/325MG TABLET PO PRN (08:15)
[2021-05-28] MEDS ORDERED: CLONIDINE 0.1MG TABLET PO PRN (08:15)
[2021-05-28] MEDS ORDERED: LIDOCAINE HCL 1% 20ML VIAL (Pyxis) INJ ONE (08:36)
[2021-05-28] MEDS: LEVETIRACETAM 500MG/5ML CUP PO SCH ×2 (09:41→21:39)
[2021-05-28] MEDS: CEFEPIME 2,000 MG in DEXT 5% WATER 100 ML IV SCH ×2 (09:41→21:39)
[2021-05-28] MEDS: METOPROLOL TARTRATE 50MG TABLET PO SCH ×2 (09:42→21:40)
[2021-05-28] MEDS: MULTIVITAMINS,THER W-MINERALS TABLET PO SCH (09:42)
[2021-05-28] MEDS: ENOXAPARIN 40MG/0.4ML SYR SUBCUT SCH (09:44)
[2021-05-28 10:23] LABS: BASOPHILS % 0.8 % (0.0-2.0); EOSINOPHILS % 2.3 % (0.0-5.0); HEMATOCRIT. 32.2 % (42.0-52.0); HEMOGLOBIN. 11.1 g/dL (14.0-18.0); LYMPHOCYTES % 14.2 % (20.0-50.0); MEAN CORPUSCULAR HEMOGLOBIN 28.7 pg (28.0-32.0); MEAN CORPUSCULAR VOLUME 83.6 fL (80.0-94.0); MEAN PLATELET VOLUME 8.2 fl (7.4-10.4); MONOCYTES % 7.9 % (2.0-8.0); NEUTROPHILS % 74.8 % (40.0-76.0); PLATELET 295 x1000/uL (130-400); RED BLOOD CELL COUNT 3.85 mill/uL (4.7-6.1); RED CELL DISTRIBUTION WIDTH 13.9 % (11.6-14.6)
[2021-05-28 10:35] LABS: CHLORIDE 103 mEq/L (98-107)
[2021-05-28] MEDS ORDERED: NALOXONE HCL 0.4MG/ML VIAL IV PRN (15:00)
[2021-05-28] MEDS ORDERED: IOHEXOL-300 100 ML BOTTLE ONE (17:04)
[2021-05-29] VITALS (12 sets, daily range): BP systolic 110–134; BP diastolic 78–100
[2021-05-29] MEDS: IPRATROPIUM/ALBUTEROL 0.5-3(2.5)MG/3ML NEB HHN SCH ×4 (01:13→20:35)
[2021-05-29] MEDS: CLINDAMYCIN 900 MG in DEXTROSE 5% WATER 50 ML IV SCH ×3 (02:44→18:18)
[2021-05-29 07:35] LABS: BASOPHILS % 0.4 % (0.0-2.0); EOSINOPHILS % 2.3 % (0.0-5.0); HEMATOCRIT. 32.5 % (42.0-52.0); HEMOGLOBIN. 11.4 g/dL (14.0-18.0); LYMPHOCYTES % 12.6 % (20.0-50.0); MEAN CORPUSCULAR VOLUME 82.7 fL (80.0-94.0); MEAN PLATELET VOLUME 8.5 fl (7.4-10.4); MONOCYTES % 8.2 % (2.0-8.0); NEUTROPHILS % 76.5 % (40.0-76.0); PLATELET 301 x1000/uL (130-400); RED BLOOD CELL COUNT 3.94 mill/uL (4.7-6.1); RED CELL DISTRIBUTION WIDTH 13.7 % (11.6-14.6)
[2021-05-29 07:45] LABS: CHLORIDE 100 mEq/L (98-107)
[2021-05-29 07:58] LABS: PHOSPHORUS 5.1 mg/dL (2.5-4.9)
[2021-05-29] MEDS: LEVETIRACETAM 500MG/5ML CUP PO SCH ×2 (10:03→21:27)
[2021-05-29] MEDS: MULTIVITAMINS,THER W-MINERALS TABLET PO SCH (10:03)
[2021-05-29] MEDS: CEFEPIME 2,000 MG in DEXT 5% WATER 100 ML IV SCH ×2 (10:03→21:27)
[2021-05-29] MEDS: METOPROLOL TARTRATE 50MG TABLET PO SCH ×2 (10:04→21:28)
[2021-05-29] MEDS: OMEPRAZOLE 20MG CAPSULE EXTENDED RELEASE PO SCH (10:06)
[2021-05-29] MEDS: ENOXAPARIN 40MG/0.4ML SYR SUBCUT SCH (10:07)
[2021-05-29] MEDS ORDERED: POTASSIUM CHLORIDE INJ 40 MEQ in DEXT 5% WATER 250 ML IV NR (17:00)
[2021-05-30] VITALS (12 sets, daily range): BP systolic 112–134; BP diastolic 81–95
[2021-05-30] MEDS: CLINDAMYCIN 900 MG in DEXTROSE 5% WATER 50 ML IV SCH ×3 (02:15→17:33)
[2021-05-30] MEDS: IPRATROPIUM/ALBUTEROL 0.5-3(2.5)MG/3ML NEB HHN SCH ×4 (02:28→19:45)
[2021-05-30 05:41] LABS: BASOPHILS % 0.6 % (0.0-2.0); EOSINOPHILS % 3.1 % (0.0-5.0); HEMATOCRIT. 33.8 % (42.0-52.0); HEMOGLOBIN. 11.6 g/dL (14.0-18.0); LYMPHOCYTES % 15.1 % (20.0-50.0); MEAN CORPUSCULAR HEMOGLOBIN 28.6 pg (28.0-32.0); MEAN CORPUSCULAR VOLUME 83.4 fL (80.0-94.0); MEAN PLATELET VOLUME 8.3 fl (7.4-10.4); MONOCYTES % 10.6 % (2.0-8.0); NEUTROPHILS % 70.6 % (40.0-76.0); PLATELET 316 x1000/uL (130-400); RED BLOOD CELL COUNT 4.05 mill/uL (4.7-6.1); RED CELL DISTRIBUTION WIDTH 13.8 % (11.6-14.6)
[2021-05-30 05:45] LABS: CHLORIDE 101 mEq/L (98-107)
[2021-05-30] MEDS: LEVETIRACETAM 500MG/5ML CUP PO SCH ×2 (08:18→20:54)
[2021-05-30] MEDS: METOPROLOL TARTRATE 50MG TABLET PO SCH ×2 (08:18→20:54)
[2021-05-30] MEDS: MULTIVITAMINS,THER W-MINERALS TABLET PO SCH (08:18)
[2021-05-30] MEDS: CEFEPIME 2,000 MG in DEXT 5% WATER 100 ML IV SCH ×2 (08:19→20:54)
[2021-05-30] MEDS: ENOXAPARIN 40MG/0.4ML SYR SUBCUT SCH (08:19)
[2021-05-30] MEDS: OMEPRAZOLE 20MG CAPSULE EXTENDED RELEASE PO SCH (08:20)
[2021-05-31] VITALS (13 sets, daily range): BP systolic 100–139; BP diastolic 75–100
[2021-05-31] MEDS: IPRATROPIUM/ALBUTEROL 0.5-3(2.5)MG/3ML NEB HHN SCH ×4 (01:54→20:25)
[2021-05-31] MEDS: CLINDAMYCIN 900 MG in DEXTROSE 5% WATER 50 ML IV SCH ×3 (02:00→18:37)
[2021-05-31] MEDS: ENOXAPARIN 40MG/0.4ML SYR SUBCUT SCH (09:00)
[2021-05-31] MEDS: MULTIVITAMINS,THER W-MINERALS TABLET PO SCH (11:29)
[2021-05-31] MEDS: LEVETIRACETAM 500MG/5ML CUP PO SCH ×2 (11:29→21:13)
[2021-05-31] MEDS: OMEPRAZOLE 20MG CAPSULE EXTENDED RELEASE PO SCH (11:30)
[2021-05-31] MEDS ORDERED: LORAZEPAM 2MG/ML CPJ IV SCH (11:45)
[2021-05-31] MEDS: CEFEPIME 2,000 MG in DEXT 5% WATER 100 ML IV SCH ×2 (11:53→21:13)
[2021-05-31] MEDS: METOPROLOL TARTRATE 50MG TABLET PO SCH ×2 (11:55→21:18)
[2021-06-01] VITALS (13 sets, daily range): BP systolic 104–126; BP diastolic 73–96
[2021-06-01] MEDS: CLINDAMYCIN 900 MG in DEXTROSE 5% WATER 50 ML IV SCH ×3 (01:53→18:04)
[2021-06-01] MEDS: IPRATROPIUM/ALBUTEROL 0.5-3(2.5)MG/3ML NEB HHN SCH ×4 (02:07→20:28)
[2021-06-01] MEDS: CEFEPIME 2,000 MG in DEXT 5% WATER 100 ML IV SCH ×2 (08:14→20:19)
[2021-06-01] MEDS: METOPROLOL TARTRATE 50MG TABLET PO SCH ×2 (08:14→20:21)
[2021-06-01] MEDS: ENOXAPARIN 40MG/0.4ML SYR SUBCUT SCH (08:14)
[2021-06-01] MEDS: OMEPRAZOLE 20MG CAPSULE EXTENDED RELEASE PO SCH (08:14)
[2021-06-01] MEDS: LEVETIRACETAM 500MG/5ML CUP PO SCH ×2 (08:14→20:19)
[2021-06-01] MEDS: MULTIVITAMINS,THER W-MINERALS TABLET PO SCH (08:14)
[2021-06-01] MEDS ORDERED: VANCOMYCIN 1500MG in DEXTROSE 5% WATER 250ML IV NR (21:00)
[2021-06-02] VITALS (12 sets, daily range): BP systolic 107–130; BP diastolic 77–92
[2021-06-02] MEDS: IPRATROPIUM/ALBUTEROL 0.5-3(2.5)MG/3ML NEB HHN SCH ×4 (02:04→20:33)
[2021-06-02] MEDS: VANCOMYCIN 1 G PREMIX 200 ML IV SCH ×3 (05:02→23:00)
[2021-06-02] MEDS: OMEPRAZOLE 20MG CAPSULE EXTENDED RELEASE PO SCH (05:02)
[2021-06-02] MEDS: CEFEPIME 2,000 MG in DEXT 5% WATER 100 ML IV SCH ×2 (10:06→20:16)
[2021-06-02] MEDS: LEVETIRACETAM 500MG/5ML CUP PO SCH ×2 (10:06→20:17)
[2021-06-02] MEDS: ENOXAPARIN 40MG/0.4ML SYR SUBCUT SCH (10:06)
[2021-06-02] MEDS: METOPROLOL TARTRATE 50MG TABLET PO SCH ×2 (10:07→21:16)
[2021-06-02] MEDS: MULTIVITAMINS,THER W-MINERALS TABLET PO SCH (10:07)
[2021-06-03] VITALS (12 sets, daily range): BP systolic 107–128; BP diastolic 76–98
[2021-06-03] MEDS: IPRATROPIUM/ALBUTEROL 0.5-3(2.5)MG/3ML NEB HHN SCH ×4 (01:34→20:10)
[2021-06-03] MEDS: VANCOMYCIN 1 G PREMIX 200 ML IV SCH ×3 (03:42→21:14)
[2021-06-03] MEDS: OMEPRAZOLE 20MG CAPSULE EXTENDED RELEASE PO SCH (05:43)
[2021-06-03 06:02] LABS: HEMATOCRIT. 35.5 % (42.0-52.0); HEMOGLOBIN. 11.9 g/dL (14.0-18.0); MEAN CORPUSCULAR HEMOGLOBIN 28.6 pg (28.0-32.0); MEAN CORPUSCULAR VOLUME 85.2 fL (80.0-94.0); MEAN PLATELET VOLUME 8.7 fl (7.4-10.4); PLATELET 273 x1000/uL (130-400); RED BLOOD CELL COUNT 4.16 mill/uL (4.7-6.1); RED CELL DISTRIBUTION WIDTH 14.2 % (11.6-14.6)
[2021-06-03 06:05] LABS: CHLORIDE 101 mEq/L (98-107)
[2021-06-03] MEDS: LEVETIRACETAM 500MG/5ML CUP PO SCH ×2 (08:42→21:14)
[2021-06-03] MEDS: ENOXAPARIN 40MG/0.4ML SYR SUBCUT SCH (08:42)
[2021-06-03] MEDS: MULTIVITAMINS,THER W-MINERALS TABLET PO SCH (08:42)
[2021-06-03] MEDS: CEFEPIME 2,000 MG in DEXT 5% WATER 100 ML IV SCH ×2 (08:42→21:15)
[2021-06-03] MEDS: METOPROLOL TARTRATE 50MG TABLET PO SCH ×2 (08:43→20:51)
[2021-06-03 21:16] LABS: PLATELET ESTIMATE NORMAL
[2021-06-04] VITALS (12 sets, daily range): BP systolic 111–136; BP diastolic 78–104
[2021-06-04] MEDS: IPRATROPIUM/ALBUTEROL 0.5-3(2.5)MG/3ML NEB HHN SCH ×5 (01:00→20:13)
[2021-06-04 03:48] LABS: CHLORIDE 103 mEq/L (98-107)
[2021-06-04] MEDS: VANCOMYCIN 1 G PREMIX 200 ML IV SCH (05:55)
[2021-06-04] MEDS: OMEPRAZOLE 20MG CAPSULE EXTENDED RELEASE PO SCH (09:04)
[2021-06-04] MEDS: LEVETIRACETAM 500MG/5ML CUP PO SCH ×2 (09:04→21:52)
[2021-06-04] MEDS: CEFEPIME 2,000 MG in DEXT 5% WATER 100 ML IV SCH ×2 (09:04→21:52)
[2021-06-04] MEDS: MULTIVITAMINS,THER W-MINERALS TABLET PO SCH (09:04)
[2021-06-04] MEDS: METOPROLOL TARTRATE 50MG TABLET PO SCH ×2 (09:05→21:52)
[2021-06-04] MEDS: ENOXAPARIN 40MG/0.4ML SYR SUBCUT SCH (09:06)
[2021-06-04] MEDS: VANCOMYCIN 1250MG in DEXTROSE 5% WATER 250ML IV SCH (17:49)
[2021-06-05] VITALS (10 sets, daily range): BP systolic 114–151; BP diastolic 84–108
[2021-06-05] MEDS: IPRATROPIUM/ALBUTEROL 0.5-3(2.5)MG/3ML NEB HHN SCH ×3 (02:40→14:42)
[2021-06-05] MEDS: VANCOMYCIN 1250MG in DEXTROSE 5% WATER 250ML IV SCH (05:44)
[2021-06-05] MEDS ORDERED: ZINC SULFATE 220 MG ( 50 ) CAPSULE PO SCH (09:00)
[2021-06-05] MEDS ORDERED: ASCORBIC ACID 500 MG TABLET PO SCH (09:00)
[2021-06-05] MEDS: LEVETIRACETAM 500MG/5ML CUP PO SCH (09:17)
[2021-06-05] MEDS: ENOXAPARIN 40MG/0.4ML SYR SUBCUT SCH (09:17)
[2021-06-05] MEDS: MULTIVITAMINS,THER W-MINERALS TABLET PO SCH (09:17)
[2021-06-05] MEDS: OMEPRAZOLE 20MG CAPSULE EXTENDED RELEASE PO SCH (09:17)
[2021-06-05] MEDS: METOPROLOL TARTRATE 50MG TABLET PO SCH (09:18)
[2021-06-05] MEDS: CEFEPIME 2,000 MG in DEXT 5% WATER 100 ML IV SCH (10:45)
== END 2021-06-05 22:11 | DRG 720 ==
LOC: ER 15:19 → 5EST 19:34 → EDBEDREQ 19:36 → EDBEDREQTM 19:36 → EDBEDREQSVC 23:01 → ENRESERV 23:03
PROVIDERS: ADMIT Internal Medicine; ATTEND Internal Medicine
PROC: 5A1955Z Respiratory Ventilation, Greater than 96 Consecutive Hours (ICD-10-PCS; principal; 2021-05-27)
PROC: 02HV33Z Insertion of Infusion Device into Superior Vena Cava, Percutaneous Approach (ICD-10-PCS; 2021-05-28)
PROC: B548ZZA Ultrasonography of Superior Vena Cava, Guidance (ICD-10-PCS; 2021-05-28)
DX: A41.9 Sepsis, unspecified organism (principal); J15.1 Pneumonia due to Pseudomonas; E44.0 Moderate protein-calorie malnutrition; G93.1 Anoxic brain damage, not elsewhere classified; J96.10 Chronic respiratory failure, unspecified whether with hypoxia or hypercapnia; K12.2 Cellulitis and abscess of mouth; K21.9 Gastro-esophageal reflux disease without esophagitis; I10 Essential (primary) hypertension; E87.6 Hypokalemia; Z20.822 Contact with and (suspected) exposure to COVID-19; E83.39 Other disorders of phosphorus metabolism; L89.896 Pressure-induced deep tissue damage of other site; R74.01 Elevation of levels of liver transaminase levels; Z99.11 Dependence on respirator [ventilator] status; Z93.0 Tracheostomy status; Z87.01 Personal history of pneumonia (recurrent); Z93.1 Gastrostomy status; Z79.899 Other long term (current) drug therapy; Z68.29 Body mass index [BMI] 29.0-29.9, adult
CPT/HCPCS: 36415; 36600; 70487; 71045; 76700; 76937; 80048; 80053; 80076; 80202; 81003; 82040; 82375; 82805; 82962; 83605; 83735; 84100; 84134; 84145; 84484; 85025; 87070; 87077; 87186; 93005; 93970; 94002; 94003; 94640; 99291; C1725; J0692; J1650; J2060; J2543; J3370; J3480; J3490; J7030; J7040; J7060; Q9967; U0003; U0005

== ENCOUNTER 2021-07-21 23:29 | Inpatient (IN) | payer MEDICAID, OTHER ==
[~2021-07-21] VITALS: Ht 167.6 cm; Wt 80.3 kg
[~2021-07-21 23:29] MED LIST: ASCO500C15 PO; KEPP500 MT; METO-539 MT; MOM MT; MULT-230 MT; OMEP20TA15 PO; ZINC220C6
[2021-07-22] VITALS (11 sets, daily range): BP systolic 115–145; BP diastolic 77–103
[2021-07-22] MEDS ORDERED: SODIUM CHLORIDE 0.9% 1,000 ML IV ONE (00:30)
[2021-07-22] MEDS ORDERED: VANCOMYCIN 1 G PREMIX 200 ML IV ONE (00:30)
[2021-07-22] MEDS ORDERED: PIPERACILLIN/TAZ 3.375G PREMIX 50 ML IV ONE (00:30)
[2021-07-22 01:15] LABS: BG BASE EXCESS 2.2 mmol/L (-2.0-2.0); BG CARBOXYHEMOGLOBIN 0.3 % (0.5-1.5); BG DEOXYHEMOGLOBIN 2.2 % (0.0-5.0); BG FRACTION INSPIRED OXYGEN 50; BG HCO3 ACT 25.8 mmol/L (22.0-26.0); BG METHEMOGLOBIN 0.3 % (0.0-1.5); BG OXYGEN SATURATION 97.8 % (92.0-98.5); BG OXYHEMOGLOBIN 97.2 % (94.0-97.0); BG PH 7.461 (7.350-7.450); BG PO2 95.9 mmHg (75.0-100.0); BG SAMPLE SITE RIGHT BRACHIAL; BG TOTAL HEMOGLOBIN 14.3 g/dL (12.0-18.0); BG TOTAL RESPIRATORY RATE 19 b/min; BG VENT MODE VENT - AC
[2021-07-22 01:19] LABS: HEMATOCRIT. 39.5 % (42.0-52.0); HEMOGLOBIN. 13.7 g/dL (14.0-18.0); MEAN CORPUSCULAR HEMOGLOBIN 29.5 pg (28.0-32.0); MEAN CORPUSCULAR VOLUME 84.6 fL (80.0-94.0); MEAN PLATELET VOLUME 8.9 fl (7.4-10.4); PLATELET 283 x1000/uL (130-400); RED BLOOD CELL COUNT 4.67 mill/uL (4.7-6.1); RED CELL DISTRIBUTION WIDTH 13.9 % (11.6-14.6)
[2021-07-22 01:28] LABS: CHLORIDE 102 mEq/L (98-107)
[2021-07-22 01:57] LABS: PROTHROMBIN TIME 11.1 sec (9.6-11.0)
[2021-07-22] MEDS ORDERED: SODIUM CHLORIDE 0.9% 1000ML BAG (SEPSIS BOLUS) IV ONE (03:15)
[2021-07-22 04:50] LABS: CLARITY URINE CLOUDY (CLEAR); COLOR URINE YELLOW (YELLOW); KETONES URINE NEGATIVE (NEGATIVE); LEUKOCYTE ESTERASE URINE NEGATIVE (NEGATIVE); NITRITE URINE NEGATIVE (NEGATIVE); OCCULT BLOOD URINE NEGATIVE (NEGATIVE); PROTEIN URINE NEGATIVE (NEGATIVE); SPECIFIC GRAVITY URINE 1.016 (1.005-1.030)
[2021-07-22 05:33] LABS: PLATELET ESTIMATE NORMAL
[2021-07-22] MEDS ORDERED: ONDANSETRON HCL 4MG/2ML INJ IV PRN (09:15)
[2021-07-22] MEDS ORDERED: PIPERACILLIN/TAZOBACTAM 3.375 G in DEXTROSE 5% WATER 50 ML IV SCH (11:00)
[2021-07-22] MEDS: PIPERACILLIN/TAZOBACTAM 3.375G in DEXT 5% WATER 50ML IV SCH ×2 (14:56→21:14)
[2021-07-22] MEDS ORDERED: IPRATROPIUM/ALBUTEROL 0.5-3(2.5)MG/3ML NEB HHN PRN (15:15)
[2021-07-22] MEDS: IPRATROPIUM/ALBUTEROL 0.5-3(2.5)MG/3ML NEB HHN SCH ×2 (16:48→20:22)
[2021-07-22] MEDS: GUAIFENESIN 600MG ER TABLET PO SCH (21:14)
[2021-07-23] VITALS (12 sets, daily range): BP systolic 122–147; BP diastolic 76–117
[2021-07-23] MEDS: IPRATROPIUM/ALBUTEROL 0.5-3(2.5)MG/3ML NEB HHN SCH ×4 (00:45→20:31)
[2021-07-23] MEDS: PIPERACILLIN/TAZOBACTAM 3.375G in DEXT 5% WATER 50ML IV SCH ×3 (05:34→22:17)
[2021-07-23 08:02] LABS: CHLORIDE 106 mEq/L (98-107)
[2021-07-23] MEDS ORDERED: POTASSIUM CHLORIDE 20MEQ/PACKET PO NR (09:15)
[2021-07-23] MEDS: GUAIFENESIN 600MG ER TABLET PO SCH (09:26)
[2021-07-23 10:54] LABS: BASOPHILS % 0.5 % (0.0-2.0); EOSINOPHILS % 4.3 % (0.0-5.0); HEMATOCRIT. 36.6 % (42.0-52.0); HEMOGLOBIN. 12.6 g/dL (14.0-18.0); MEAN CORPUSCULAR HEMOGLOBIN 29.4 pg (28.0-32.0); MEAN CORPUSCULAR VOLUME 85.6 fL (80.0-94.0); MEAN PLATELET VOLUME 9.4 fl (7.4-10.4); MONOCYTES % 7.4 % (2.0-8.0); NEUTROPHILS % 70.8 % (40.0-76.0); PLATELET 227 x1000/uL (130-400); RED BLOOD CELL COUNT 4.28 mill/uL (4.7-6.1)
[2021-07-23] MEDS ORDERED: VANCOMYCIN 1250MG in DEXTROSE 5% WATER 250ML IV SCH (12:00)
[2021-07-23] MEDS ORDERED: INFLUENZA VACCINE 05/PF 0.5 ML SYRINGE IM ONE (13:00)
[2021-07-23] MEDS ORDERED: PNEUMOCOCCAL 23-VAL P-SAC VAC 0.5 ML IM ONE (13:00)
[2021-07-23] MEDS: ENOXAPARIN 40MG/0.4ML SYR SUBCUT SCH (14:53)
[2021-07-23] MEDS: GUAIFENESIN 200MG/10ML SUGAR FREE UDC PO SCH (18:30)
[2021-07-23] MEDS: VANCOMYCIN 1 G PREMIX 200 ML IV SCH (19:56)
[2021-07-24] VITALS (14 sets, daily range): BP systolic 112–146; BP diastolic 85–108
[2021-07-24] MEDS: IPRATROPIUM/ALBUTEROL 0.5-3(2.5)MG/3ML NEB HHN SCH ×4 (00:22→20:37)
[2021-07-24] MEDS: GUAIFENESIN 200MG/10ML SUGAR FREE UDC PO SCH ×4 (01:23→17:13)
[2021-07-24] MEDS: VANCOMYCIN 1 G PREMIX 200 ML IV SCH (03:03)
[2021-07-24] MEDS: PIPERACILLIN/TAZOBACTAM 3.375G in DEXT 5% WATER 50ML IV SCH ×3 (05:28→22:42)
[2021-07-24] MEDS ORDERED: METOPROLOL TARTRATE 25MG TABLET PO ONE (09:30)
[2021-07-24 09:37] LABS: CHLORIDE 105 mEq/L (98-107)
[2021-07-24] MEDS: ENOXAPARIN 40MG/0.4ML SYR SUBCUT SCH (13:57)
[2021-07-24] MEDS ORDERED: VANCOMYCIN 750 MG PREMIX 150 ML IV SCH (15:00)
[2021-07-24] MEDS: ACETAMINOPHEN 650MG/20.3ML UDC PO PRN (17:13)
[2021-07-24] MEDS: METOPROLOL TARTRATE 25MG TABLET PO SCH (21:03)
[2021-07-25] VITALS (11 sets, daily range): BP systolic 119–169; BP diastolic 60–112
[2021-07-25] MEDS: GUAIFENESIN 200MG/10ML SUGAR FREE UDC PO SCH ×4 (00:19→17:28)
[2021-07-25] MEDS: IPRATROPIUM/ALBUTEROL 0.5-3(2.5)MG/3ML NEB HHN SCH ×3 (00:21→13:14)
[2021-07-25] MEDS: PIPERACILLIN/TAZOBACTAM 3.375G in DEXT 5% WATER 50ML IV SCH ×2 (05:50→13:20)
[2021-07-25] MEDS: METOPROLOL TARTRATE 25MG TABLET PO SCH ×2 (08:42→19:36)
[2021-07-25] MEDS: ENOXAPARIN 40MG/0.4ML SYR SUBCUT SCH (13:20)
[2021-07-25] MEDS: ACETAMINOPHEN 650MG/20.3ML UDC PO PRN (19:37)
== END 2021-07-25 23:18 | DRG 720 ==
LOC: ER 23:51 → 5EST 07-22 03:47 → EDBEDREQ 07-22 03:49 → EDBEDREQTM 07-22 03:49 → ENRESERV 07-22 08:12
PROVIDERS: ADMIT Internal Medicine; ATTEND Internal Medicine
PROC: 5A1945Z Respiratory Ventilation, 24-96 Consecutive Hours (ICD-10-PCS; principal; 2021-07-21)
DX: A41.50 Gram-negative sepsis, unspecified (principal); J96.20 Acute and chronic respiratory failure, unspecified whether with hypoxia or hypercapnia; J18.9 Pneumonia, unspecified organism; E44.1 Mild protein-calorie malnutrition; G93.1 Anoxic brain damage, not elsewhere classified; L89.156 Pressure-induced deep tissue damage of sacral region; Z99.11 Dependence on respirator [ventilator] status; Z86.74 Personal history of sudden cardiac arrest; Z93.0 Tracheostomy status; Z20.822 Contact with and (suspected) exposure to COVID-19; K12.2 Cellulitis and abscess of mouth; Z79.899 Other long term (current) drug therapy; Z82.49 Family history of ischemic heart disease and other diseases of the circulatory system; Z93.1 Gastrostomy status; Z68.28 Body mass index [BMI] 28.0-28.9, adult
CPT/HCPCS: 36415; 36600; 71045; 80048; 80053; 80202; 81003; 82040; 82375; 82805; 83605; 84134; 84145; 85025; 87070; 87077; 87186; 87426; 90686; 90732; 93005; 94002; 94003; 94640; 99291; A6261; J1650; J2543; J3370; J7030; J7060